=== PATIENT | female | born 1930 | race Caucasian/White ===

== ENCOUNTER → 2017-05-15 | Outpatient (CLI) | payer MEDICARE ==
--- NOTE | 2017-05-16 09:40 | ECHOF ---
Referral Reason:R07.9 Chest Pain, I30.9 Acute Pericarditis MEASUREMENTS -------- HEIGHT: 167.6 cm WEIGHT: 50.8 kg BP: RVIDd: 3.3 cm (< 3.3) IVSd: 1.0 cm (0.6 - 1.1) LVIDd: 4.9 cm (3.9 - 5.3) LVPWd: 1.1 cm (0.6 - 1.1) IVSs: 1.3 cm LVIDs: 2.8 cm LVPWs: 1.4 cm LAESV Index (A-L): 38.50 ml/m Ao Diam: 3.2 cm (2.0 - 3.7) AV Cusp: 1.9 cm (1.5 - 2.6) LA Diam: 4.2 cm (2.7 - 3.8) MV EXCURSION: 19.523 mm (> 18.000) MV EF SLOPE: 134 mm/s (70 - 150) EPSS: 0.8 cm MV E Sourav: 1.03 m/s MV DecT: 185 ms MV A Sourav: 0.99 m/s MV E/A Ratio: 1.03 RAP: 5.00 mmHg RVSP: 44.52 mmHg FINDINGS -------- Sinus rhythm. This was a technically good study. The left ventricular size is normal. Left ventricular wall thickness is normal. Overall left vent ricular systolic function is normal with, an EF between 60 - 65 %. The right ventricle is mildly enlarged. The right ventricular systolic function is normal. LA is moderately dilated 34-39 ml/m2 RA appears enlarged. There is mild aortic valve sclerosis. There is mild aortic regurgitation. There is no evidence of aortic stenosis. The mitral valve leaflets are mild to moderately thickened. Mild mitral annular calcification pres ent. Moderate mitral regurgitation is present. Mild tricuspid regurgitation present. There is mild pulmonary hypertension. The right ventricular systolic pressure, as measured by Doppler, is 44.52mmHg. The pulmonic valve was not well visualized. The aortic root size is normal. The inferior vena cava is dilated with no significant inspiratory collapse which is consistent estima augie right atrial pressure of >20 mmHg. There is a small pericardial effusion is located near the right ventricle. CONCLUSIONS -------- 1. Sinus rhythm. 2. This was a technically good study. 3. The left ventricular size is normal. 4. Left ventricular wall thickness is normal. 5. Overall left ventricular systolic function is normal with, an EF between 60 - 65 %. 6. The right ventricle is mildly enlarged. 7. LA is moderately dilated 34-39 ml/m2 8. RA appears enlarged. 9. There is mild aortic valve sclerosis. 10. There is mild aortic regurgitation. 11. The mitral valve leaflets are mild to moderately thickened. 12. Mild mitral annular calcification present. 13. Moderate mitral regurgitation is present. Consider GREGORY for optimal evaluation 14. Mild tricuspid regurgitation present. 15. There is mild pulmonary hypertension. 16. The right ventricular systolic pressure, as measured by Doppler, is 44.52mmHg. 17. The pulmonic valve was not well visualized. 18. The aortic root size is normal. 19. The inferior vena cava is dilated with no significant inspiratory collapse which is consistent es timated right atrial pressure of >20 mmHg. 20. There is a small pericardial effusion is located near the right ventricle. CORSETIER: Salo Sue RDCS
== END | disposition home or self-care (01) ==
LOC: RADECHMAIN 14:22
PROVIDERS: ATTEND Nurse Practitioner Family
DX: I08.3 Combined rheumatic disorders of mitral, aortic and tricuspid valves (principal); I27.20 Pulmonary hypertension, unspecified; I31.3 Pericardial effusion (noninflammatory)
CPT/HCPCS: 93306

== ENCOUNTER 2018-03-01 09:40 | Observation (INO) | payer MEDICARE ==
[2018-03-01 09:51] VITALS: RESP 18
[2018-03-01] MEDS ORDERED: NITROGLYCERIN OINT 1 INCH/GM PACKET TOPICAL STA (10:15)
[2018-03-01] MEDS ORDERED: ASPIRIN 81 MG PO STA (10:15)
--- NOTE | 2018-03-01 10:39 | ED ---
General Adult HPI - General Chief complaint: Chest Pain Stated complaint: Chest/Back Pain Time Seen by Provider: 03/01/18 09:45 Source: patient, RN notes reviewed Mode of arrival: ambulatory Limitations: no limitations - History of Present Illness Initial comments: This is an 87-year-old female who presents emergency Department complaining of chest pain and back pain. Patient states the back pain started yesterday and then last night in the middle the night she started having some chest pain as well. She continues to have both but the back pain is worse in the chest pain. Patient states she took an aspirin earlier today and the pain seemed to subside. Patient denies any radiation besides the back pain. Patient denies any difficulty breathing shortness of breath per patient denies any nausea vomiting diarrhea. Patient denies any diaphoretic episodes. Patient denies any lightheadedness or dizziness. Patient denies any numbness or weakness. Patient states she had a cardiac catheterization years ago and they told her she did have 150% blockage at that time. Patient denies any recent fever chills or cough per patient denies any swelling to legs. Patient denies any calf tenderness. - Related Data Home Medications Medication Instructions Recorded Confirmed Budesonide-Formot 160-4.5 Mcg 2 puff INHALATION RT-BID 03/01/18 03/01/18 [Symbicort 160-4.5 Mcg Inhaler] Allergies Allergy/AdvReac Type Severity Reaction Status Date / Time Sulfa (Sulfonamide Allergy Unknown Verified 03/01/18 10:17 Antibiotics) Review of Systems ROS Statement: Those systems with pertinent positive or pertinent negative responses have been documented in the HPI. ROS Other: All systems not noted in ROS Statement are negative. Past Medical History Past Medical History: COPD, Pneumonia History of Any Multi-Drug Resistant Organisms: None Reported Past Surgical History: Bowel Resection, Cholecystectomy Past Anesthesia/Blood Transfusion Reactions: No Reported Reaction Past Psychological History: No Psychological Hx Reported Smoking Status: Former smoker Past Alcohol Use History: None Reported Past Drug Use History: None Reported General Exam - General Exam Comments Initial Comments: GENERAL: Patient is well-developed and well-nourished. Patient is nontoxic and well- hydrated and is in no acute distress. ENT: Neck is soft and supple. No significant lymphadenopathy is noted. Oropharynx is clear. Moist mucous membranes. Neck has full range of motion without eliciting any pain. EYES: The sclera were anicteric and conjunctiva were pink and moist. Extraocular movements were intact and pupils were equal round and reactive to light. Eyelids were unremarkable. PULMONARY: Unlabored respirations. Good breath sounds bilaterally. No audible rales rhonchi or wheezing was noted. CARDIOVASCULAR: There is a regular rate and rhythm without any murmurs gallops or rubs. ABDOMEN: Soft and nontender with normal bowel sounds. No palpable organomegaly was noted. There is no palpable pulsatile mass. SKIN: Skin is clear with no lesions or rashes and otherwise unremarkable. NEUROLOGIC: Patient is alert and oriented x3. Cranial nerves II through XII are grossly intact. Motor and sensory are also intact. Normal speech, volume and content. Symmetrical smile. MUSCULOSKELETAL: Normal extremities with adequate strength and full range of motion. No lower extremity swelling or edema. No calf tenderness. LYMPHATICS: No significant lymphadenopathy is noted PSYCHIATRIC: Normal psychiatric evaluation. Limitations: no limitations Course Vital Signs 03/01/18 03/01/18 03/01/18 09:48 09:56 12:00 Temperature 98.0 F Pulse Rate 78 76 66 Respiratory 18 17 18 Rate Blood Pressure 130/73 155/85 O2 Sat by Pulse 96 96 Oximetry Medical Decision Making - Medical Decision Making EKG shows normal sinus rhythm at 72 bpm AL interval is 136 dresses 70 QT interval 376 QTC is 411. Patient's EKG shows no ST segment elevation. No T- wave abnormalities are noted. Chest x-ray shows no acute abnormality. I spoke with Dr. mckeon he agreed to admit the patient admitted the patient I wrote admitting orders and consult cardiology. - Lab Data Result diagrams: 03/01/18 11:17 03/01/18 11:17 Lab Results 03/01/18 03/01/18 03/01/18 Range/Units 11:17 11:17 11:17 WBC 9.5 (3.8-10.6) k/uL RBC 5.01 (3.80-5.40) m/uL Hgb 15.3 (11.4-16.0) gm/dL Hct 48.3 H (34.0-46.0) % MCV 96.6 (80.0-100.0) fL MCH 30.5 (25.0-35.0) pg MCHC 31.6 (31.0-37.0) g/dL RDW 13.7 (11.5-15.5) % Plt Count 196 (150-450) k/uL Neutrophils % 86 % Lymphocytes % 7 % Monocytes % 5 % Eosinophils % 1 % Basophils % 0 % Neutrophils # 8.1 H (1.3-7.7) k/uL Lymphocytes # 0.6 L (1.0-4.8) k/uL Monocytes # 0.5 (0-1.0) k/uL Eosinophils # 0.1 (0-0.7) k/uL Basophils # 0.0 (0-0.2) k/uL PT (9.0-12.0) sec INR (<1.2) APTT (22.0-30.0) sec Sodium 140 (137-145) mmol/L Potassium 4.5 (3.5-5.1) mmol/L Chloride 104 (98-107) mmol/L Carbon Dioxide 30 (22-30) mmol/L Anion Gap 6 mmol/L BUN 27 H (7-17) mg/dL Creatinine 1.00 (0.52-1.04) mg/dL Est GFR (CKD-EPI)AfAm 59 (>60 ml/min/1.73 sqM) Est GFR (CKD-EPI)NonAf 51 (>60 ml/min/1.73 sqM) Glucose 102 H (74-99) mg/dL Calcium 9.0 (8.4-10.2) mg/dL Magnesium 1.9 (1.6-2.3) mg/dL Total Bilirubin 0.8 (0.2-1.3) mg/dL AST 33 (14-36) U/L ALT 32 (9-52) U/L Alkaline Phosphatase 67 (38-126) U/L Total Creatine Kinase 71 (30-135) U/L CK-MB (CK-2) 3.2 H (0.0-2.4) ng/mL CK-MB (CK-2) Rel Index 4.5 Troponin I <0.012 (0.000-0.034) ng/mL Total Protein 6.1 L (6.3-8.2) g/dL Albumin 3.6 (3.5-5.0) g/dL 03/01/18 Range/Units 11:17 WBC (3.8-10.6) k/uL RBC (3.80-5.40) m/uL Hgb (11.4-16.0) gm/dL Hct (34.0-46.0) % MCV (80.0-100.0) fL MCH (25.0-35.0) pg MCHC (31.0-37.0) g/dL RDW (11.5-15.5) % Plt Count (150-450) k/uL Neutrophils % % Lymphocytes % % Monocytes % % Eosinophils % % Basophils % % Neutrophils # (1.3-7.7) k/uL Lymphocytes # (1.0-4.8) k/uL Monocytes # (0-1.0) k/uL Eosinophils # (0-0.7) k/uL Basophils # (0-0.2) k/uL PT 10.5 (9.0-12.0) sec INR 1.1 (<1.2) APTT 24.5 (22.0-30.0) sec Sodium (137-145) mmol/L Potassium (3.5-5.1) mmol/L Chloride (98-107) mmol/L Carbon Dioxide (22-30) mmol/L Anion Gap mmol/L BUN (7-17) mg/dL Creatinine (0.52-1.04) mg/dL Est GFR (CKD-EPI)AfAm (>60 ml/min/1.73 sqM) Est GFR (CKD-EPI)NonAf (>60 ml/min/1.73 sqM) Glucose (74-99) mg/dL Calcium (8.4-10.2) mg/dL Magnesium (1.6-2.3) mg/dL Total Bilirubin (0.2-1.3) mg/dL AST (14-36) U/L ALT (9-52) U/L Alkaline Phosphatase (38-126) U/L Total Creatine Kinase (30-135) U/L CK-MB (CK-2) (0.0-2.4) ng/mL CK-MB (CK-2) Rel Index Troponin I (0.000-0.034) ng/mL Total Protein (6.3-8.2) g/dL Albumin (3.5-5.0) g/dL Disposition Clinical Impression: Chest pain Disposition: ADMITTED IP TO THIS HOSP Referrals: Georgiana Gaffney DO [Primary Care Provider] - 1-2 days Time of Disposition: 12:32
--- NOTE | 2018-03-01 11:33 | XR ---
EXAMINATION TYPE: XR chest 2V DATE OF EXAM: 03/01/2018 COMPARISON: Prior chest x-ray 04/03/2017 HISTORY: Chest pain TECHNIQUE: Frontal and lateral views of the chest are obtained. FINDINGS: There is no focal air space opacity, pleural effusion, or pneumothorax seen. The cardiac silhouette size is within normal limits. Scattered granuloma are again noted. Prominent lung volumes compatible with underlying emphysema, COPD. Aorta is dense. The osseous structures are intact. Promin ent central pulmonary vascularity could be due to underlying pulmonary artery hypertension IMPRESSION: No acute cardiopulmonary process. Additional findings above.
[2018-03-01 11:35] LABS: Basophils % (A) 0 %; Eosinophils # (A) 0.1 k/uL (0-0.7); Eosinophils % (A) 1 %; HCT 48.3 % (34.0-46.0); HGB 15.3 gm/dL (11.4-16.0); Lymphocytes # (A) 0.6 k/uL (1.0-4.8); Lymphocytes % (A) 7 %; MCH 30.5 pg (25.0-35.0); MCHC 31.6 g/dL (31.0-37.0); MCV 96.6 fL (80.0-100.0); Mean Platelet Volume 6.9; Monocytes # (A) 0.5 k/uL (0-1.0); Monocytes % (A) 5 %; Neutrophils # (A) 8.1 k/uL (1.3-7.7); Neutrophils % (A) 86 %; Platelet Count 196 k/uL (150-450); RBC 5.01 m/uL (3.80-5.40); RDW 13.7 % (11.5-15.5); WBC 9.5 k/uL (3.8-10.6)
[2018-03-01 11:43] LABS: Albumin 3.6 g/dL (3.5-5.0); Magnesium 1.9 mg/dL (1.6-2.3); Potassium 4.5 mmol/L (3.5-5.1); Total Bilirubin 0.8 mg/dL (0.2-1.3); Total Protein 6.1 g/dL (6.3-8.2)
[2018-03-01 11:47] LABS: INR 1.1 (<1.2); Partial Thromboplastin Time 24.5 sec (22.0-30.0); Prothrombin Time 10.5 sec (9.0-12.0)
[2018-03-01 11:56] LABS: Creatine Kinase 71 U/L (30-135)
[2018-03-01 12:09] LABS: Creatine Kinase MB 3.2 ng/mL (0.0-2.4); Troponin I <0.012 ng/mL (0.000-0.034)
[2018-03-01] MEDS ORDERED: NITROGLYCERIN SL TABS 0.4 MG TAB SUBLINGUAL PRN (12:32)
[2018-03-01 18:02] LABS: Creatine Kinase 57 U/L (30-135)
[2018-03-01 18:14] LABS: Creatine Kinase MB 2.6 ng/mL (0.0-2.4); Troponin I <0.012 ng/mL (0.000-0.034)
[2018-03-01] MEDS: NITROGLYCERIN OINT 1 INCH/GM PACKET TOPICAL SCH ×2 (19:42→23:16)
--- NOTE | 2018-03-01 20:12 | CONS ---
CONSULTATION CHIEF COMPLAINT: Chest pain. Norma is an 87-year-old lady with history of COPD who presented to hospital complaining of chest pain. It is a sharp, interscapular pain that has radiated to the left side of her chest. It is unassociated with diaphoresis, unrelated to exertion and there is no dyspnea. It is mild intensity going on for the last several days on and off. EKG does not reveal ischemic changes. First set of cardiac enzymes are negative. The patient apparently had a cardiac catheterization many years ago and did not have significant obstructive CAD. PAST MEDICAL HISTORY: Significant for COPD. MEDICATIONS: The patient is on Symbicort. ALLERGIES: ALLERGIC TO SULFA. FAMILY HISTORY: Negative for premature coronary artery disease. SOCIAL HISTORY: Negative for current smoking, EtOH abuse, or drug abuse. REVIEW OF SYSTEMS: HEENT is unremarkable. CARDIAC: As described above. GI: Negative. : Negative. ALLERGY/IMMUNOLOGY: Negative. SKIN: Negative. MUSCULOSKELETAL: Significant for arthritis PSYCHOSOCIAL: Negative. CONSTITUTIONAL: Negative. DERM: Negative ONCOLOGICAL: Negative. The rest of the system review is not relevant. PHYSICAL EXAMINATION: On exam, patient is comfortable at rest. Vital signs are stable. There is no jugular venous distention. Carotid upstroke is normal. There is no bruit. Chest exam reveals good air entry bilaterally. Heart exam reveals first and second heart sounds. Ejection systolic murmur in the aortic area. Abdomen is soft. Exam of extremities did not reveal edema. Peripheral pulses are felt. EKG is within normal limits. First set of cardiac enzymes are negative. ASSESSMENT: Chest pain, sharp, atypical, probably noncardiac. Will obtain serial troponins to rule out myocardial infarction. If these are negative, we will schedule her for a stress test tomorrow. MMODL / IJN: [id number] /
[2018-03-01] MEDS ORDERED: MELATONIN 5 MG TABLET PO SCH (21:30)
[2018-03-01] MEDS ORDERED: LORATADINE 10 MG TAB PO PRN (21:41)
[2018-03-01] MEDS: ACETAMINOPHEN TAB 325 MG TAB PO PRN (21:42)
[2018-03-02 00:16] LABS: Creatine Kinase 53 U/L (30-135)
[2018-03-02] MEDS ORDERED: DOCUSATE 100 MG CAP PO PRN (00:19)
--- NOTE | 2018-03-02 00:27 | P.HPIM ---
History of Present Illness H&P Date: 03/01/18 Chief Complaint: Chest pain Patient is a 87-year-old female with a known history of COPD and history of smoking came to ER with complaints of pain in the back started coming around chest. Patient states the back pain started yesterday and then last night in the middle the night she started having some chest pain as well and woke up from sleep. Patient was unable to sleep for a long time. Last about half an hour to 2 hours. Patient woke up again around 5 AM with chest pain. Patient states she took an aspirin earlier today and the pain seemed to subside. Patient denies any radiation besides the back pain. Back pain is mainly left lower chest and flank area. Patient denies any difficulty breathing shortness of breath per patient denies any nausea vomiting diarrhea. Patient denies any diaphoretic episodes. Patient denies any lightheadedness or dizziness. Patient denies any numbness or weakness. Currently patient says that the pain is subsiding. Patient states she had a cardiac catheterization years ago and they told her she did have 50% blockage at that time. Patient denies any recent fever chills or cough per patient denies any swelling to legs. Patient denies any calf tenderness. Patient does have issues with constipation. Last bowel movement was yesterday. Chest x-ray showed no acute process. Positive findings of pulmonary hypertension. EKG sinus rhythm with sinus arrhythmia Neckline troponin 1 negative Review of Systems Constitutional: Patient denies any fever or chills . No generalized weakness or weight loss. Abdomen: Patient denied nausea vomiting and diarrhea and abdominal pain. Cardiovascular: Does have chest pain. No short of breath no palpitations. No leg swelling Respiratory: patient denied any cough is from production. No shortness of breath Neurologic: Patient denied any numbness or tingling headache. Musculoskeletal: Patient denies any complaints of joint swelling or deformity. Skin: Negative Psychiatric: Negative Endocrine: No heat or cold intolerance. No recent weight gain. Genitourinary: No dysuria or hematuria. All other 14 point ROS negative except the above Past Medical History Past Medical History: COPD, Pneumonia History of Any Multi-Drug Resistant Organisms: None Reported Past Surgical History: Bowel Resection, Cholecystectomy Past Anesthesia/Blood Transfusion Reactions: No Reported Reaction Past Psychological History: No Psychological Hx Reported Smoking Status: Former smoker Past Alcohol Use History: None Reported Past Drug Use History: None Reported - Past Family History Mother Family Medical History: Cancer Father Family Medical History: Congestive Heart Failure (CHF) Medications and Allergies Home Medications Medication Instructions Recorded Confirmed Type Budesonide-Formot 160-4.5 Mcg 2 puff INHALATION RT-BID 03/01/18 03/01/18 History [Symbicort 160-4.5 Mcg Inhaler] Allergies Allergy/AdvReac Type Severity Reaction Status Date / Time Sulfa (Sulfonamide Allergy Unknown Verified 03/01/18 21:05 Antibiotics) Physical Exam Vitals: Vital Signs Temp Pulse Resp BP Pulse Ox 03/01/18 14:30 60 18 150/75 03/01/18 14:00 62 18 151/76 03/01/18 13:30 57 L 18 148/79 03/01/18 13:14 66 18 148/79 96 03/01/18 13:00 61 18 154/82 96 03/01/18 12:30 61 18 159/83 03/01/18 12:00 66 18 155/85 96 03/01/18 09:56 76 17 03/01/18 09:48 98.0 F 78 18 130/73 96 Intake and Output 02/28/18 03/01/18 03/01/18 22:59 06:59 14:59 Other: Weight 50.802 kg PHYSICAL EXAMINATION: Patient is lying in the bed comfortably, no acute distress, awake alert and oriented.. HEENT: Normocephalic. Neck is supple. Pupils reactive. Nostrils clear. Oral cavity is moist. Ears reveal no drainage. Neck reveals no JVD, carotid bruits, or thyromegaly. CHEST EXAMINATION: Trachea is central. Symmetrical expansion. Lung garza clear to auscultation and percussion. CARDIAC: Normal S1, S2 with no gallops. No murmurs ABDOMEN: Soft. No flank tenderness. Bowel sounds normal. No organomegaly. No abdominal bruits. Extremities: reveal no edema. No clubbing or cyanosis Neurologically awake, alert, oriented x3 with well-coordinated movements. No focal deficits noted Skin: No rash or skin lesions. Psychiatric: Coperative. Nonsuicidal Musculoskeletal: No joint swelling or deformity. Normal range of motion. Results CBC & Chem 7: 03/01/18 11:17 03/01/18 11:17 Labs: Abnormal Lab Results - Last 24 Hours (Table) 03/01/18 03/01/18 03/01/18 Range/Units 11:17 11:17 11:17 Hct 48.3 H (34.0-46.0) % Neutrophils # 8.1 H (1.3-7.7) k/uL Lymphocytes # 0.6 L (1.0-4.8) k/uL BUN 27 H (7-17) mg/dL Glucose 102 H (74-99) mg/dL CK-MB (CK-2) 3.2 H (0.0-2.4) ng/mL Total Protein 6.1 L (6.3-8.2) g/dL Thrombosis Risk Factor Assmnt - DVT/VTE Prophylaxis DVT/VTE Prophylaxis: Pharmacologic Prophylaxis ordered Assessment and Plan Assessment: Atypical chest pain and back pain. Rule out ACS. Sinus arrhythmia Dehydration with elevated BUN COPD stable History of smoking Constipation on and off DVT prophylaxis Plan: Patient be continued on telemetry monitoring. Serial EKG and troponins. If the serial troponins are negative, cardiac disease planning for stress test. Continue with Symbicort 2 puffs twice a day. Will check a UA and gentle hydration. Further recommendations based on the clinical course. Time with Patient: Greater than 30
[2018-03-02 00:30] LABS: Creatine Kinase MB 1.8 ng/mL (0.0-2.4); Troponin I <0.012 ng/mL (0.000-0.034)
[2018-03-02] MEDS ORDERED: SODIUM CHLORIDE 0.9% 1,000 ML IV SCH (00:30)
[2018-03-02 02:41] LABS: Cholesterol 176 mg/dL (<200); HDL Cholesterol 75 mg/dL (40-60); LDL Cholesterol,Calculated 85 mg/dL (0-99); Triglycerides 80 mg/dL (<150)
[2018-03-02 04:35] VITALS: PULSE 72
[2018-03-02] MEDS: NITROGLYCERIN OINT 1 INCH/GM PACKET TOPICAL SCH ×2 (05:52→12:47)
[2018-03-02] MEDS: SYMBICORT 160-4.5 MCG INHALER INHALATION SCH ×2 (07:06→07:09)
[2018-03-02] MEDS ORDERED: ASPIRIN 325 MG TAB PO SCH (09:00)
[2018-03-02] MEDS ORDERED: CAFFEINE CITRATE 60 MG/3 ML VIAL IV PRN (09:39)
[2018-03-02] MEDS ORDERED: REGADENOSON 0.4 MG/5 ML SYRINGE IV ONE (09:39)
--- NOTE | 2018-03-02 11:55 | EST ---
EXERCISE STRESS AGE: 87 SEX: F HT: 66" WT: 112 PROTOCOL: Lexiscan Cardiolite Stress Test HEART RATE REST: 63 BLOOD PRESSURE REST: 132/78 MAXIMUM HEART RATE ACHIEVED: 103 MAXIMUM BLOOD PRESSURE: 148/65 85% MPHR: 113 100% MPHR: 133 INDICATIONS: Chest pain. CLINICAL INFORMATION: Baseline EKG shows sinus rhythm, normal axis, normal intervals. Patient was given intravenous Lexiscan as per protocol. Did not have chest pain or diagnostic ST-segment depression. CONCLUSION: 1. Negative stress test by EKG criteria. 2. Cardiolite portion of the stress test will be reported separately. MMODL / IJN: [id number] /
--- NOTE | 2018-03-02 11:55 | PN ---
PROGRESS NOTE Norma is an 87-year-old lady who presented to hospital with chest pain yesterday. I evaluated her in the emergency room. Since being admitted she is doing well and has not had any further episodes of chest pain. EKG does not reveal acute ischemic changes. Cardiac enzymes have been normal. Her lipid profile shows an LDL cholesterol of 85 and a HDL of 75. I advised the patient will undergo a stress test today and if there is ischemia, I will consider cardiac catheterization on her. PHYSICAL EXAM: She is comfortable at rest. Vital signs are stable. There is no jugular venous distention. Carotid upstroke is normal. There is no bruit. Chest exam reveals good air entry bilaterally. Heart exam reveals first and second heart sounds. No gallop. Abdomen is soft. Exam of extremities did not reveal any edema. Peripheral pulses are felt. Patient is to have an echocardiogram and will review when it is available. ASSESSMENT: Precordial chest pain, rule out coronary artery disease. PLAN: Patient will undergo a stress test. If this is normal, she will be discharged home. If it is abnormal, she will undergo cardiac catheterization. MMODL / IJN: [id number] /
--- NOTE | 2018-03-02 12:26 | NM ---
EXAMINATION TYPE: NM stress lexiscan cardiolite DATE OF EXAM: 03/02/2018 COMPARISON: NONE HISTORY: Chest pain TECHNIQUE: After the intravenous administration of 10.3 mCi Tc 99m Sestamibi - Cardiolite resting SP ECT images acquired 45 minutes post injection. At peak stress, 25.2 mCi Tc 99m Sestamibi - Stress images obtained 30 minutes post injection . Patient stressed under cardiology observation but did not achieve 85% predicted maximum heart rate. E xamination is limited to the level of exercise achieved. FINDINGS: There is some cardiac thinning. No stress-induced ischemic changes are evident. No fixed defects are evident. Gated wall motion is normal. The ejection fraction of 68% is normal. IMPRESSION: 1. No stress-induced ischemic changes. 2. Patient did not achieve 85% predicted maximum heart rate exam is limited to the level of exercise achieved.
[2018-03-02] MEDS: ACETAMINOPHEN TAB 325 MG TAB PO PRN (12:44)
[2018-03-02 12:51] VITALS: BP 157/65; TEMP 97.9
--- NOTE | 2018-03-02 15:17 | P.DS ---
Providers Date of admission: 03/01/18 12:33 Attending physician: Garry Otero MD Consults: 03/01/18 12:33 Consult Physician Urgent Consulting Provider: [facility] Consult Reason/Comments: Chest pain Do you want consulting provider notified?: Yes Primary care physician: Georgiana Gaffney Hospital Course: Patient was admitted for chest pain patient underwent stress test which did not show any inducible ischemia. If cleared by cardiology patient will be discharged today. Patient's pain is musculoskeletal and back pain. Patient has to take [id number] Tylenol on an as-needed basis and patient will benefit from outpatient physical therapy' PHYSICAL EXAMINATION: GENERAL: The patient is alert and oriented x3, not in any acute distress. Well developed, well nourished. HEENT: Pupils are round and equally reacting to light. EOMI. No scleral icterus. No conjunctival pallor. Normocephalic, atraumatic. No pharyngeal erythema. No thyromegaly. CARDIOVASCULAR: S1 and S2 present. No murmurs, rubs, or gallops. PULMONARY: Chest is clear to auscultation, no wheezing or crackles. ABDOMEN: Soft, nontender, nondistended, normoactive bowel sounds. No palpable organomegaly. MUSCULOSKELETAL: No joint swelling or deformity. EXTREMITIES: No cyanosis, clubbing, or pedal edema. NEUROLOGICAL: Gross neurological examination did not reveal any focal deficits. SKIN: No rashes. Her other chronic medical problems and hospitalization course please refer to the dictation of H&P from Dr. Troy Plan - Discharge Summary Discharge Rx Participant: No New Discharge Prescriptions: No Action Budesonide-Formot 160-4.5 Mcg [Symbicort 160-4.5 Mcg Inhaler] 2 puff INHALATION RT-BID Discharge Medication List Budesonide-Formot 160-4.5 Mcg [Symbicort 160-4.5 Mcg Inhaler] 2 puff INHALATION RT-BID 03/01/18 [History] Follow up Appointment(s)/Referral(s): Georgiana Gaffney DO [Primary Care Provider] - 3 Days Clovis Canales MD [STAFF PHYSICIAN] - 1 Week Patient Instructions/Handouts: Chest Pain (GEN) Discharge Disposition: HOME SELF-CARE
--- NOTE | 2018-03-03 08:59 | ECHOF ---
Referral Reason:cp MEASUREMENTS -------- HEIGHT: 167.6 cm WEIGHT: 50.8 kg BP: 127/65 RVIDd: 2.2 cm (< 3.3) IVSd: 1.1 cm (0.6 - 1.1) LVIDd: 3.7 cm (3.9 - 5.3) LVPWd: 1.1 cm (0.6 - 1.1) IVSs: 1.5 cm LVIDs: 2.4 cm LVPWs: 1.4 cm LAESV Index (A-L): 59.91 ml/m Ao Diam: 3.5 cm (2.0 - 3.7) AV Cusp: 1.6 cm (1.5 - 2.6) LA Diam: 3.5 cm (2.7 - 3.8) EPSS: 0.7 cm MV E Sourav: 0.88 m/s MV DecT: 210 ms MV A Sourav: 1.11 m/s MV E/A Ratio: 0.79 AR PHT: 499 ms RAP: 5.00 mmHg RVSP: 39.46 mmHg MV EF SLOPE: 45.85 mm/s (70 - 150) MV EXCURSION: 1.56 cm (> 18.000) FINDINGS -------- Sinus rhythm. This was a technically good study. The left ventricular size is normal. There is borderline concentric left ventricular hypertrophy. Overall left ventricular systolic function is normal with, an EF between 60 - 65 %. The right ventricle is normal in size and function. LA is severely dilated >40 ml/m2 RA appears enlarged. Aortic valve is trileaflet and is moderately thickened. There is moderate aortic regurgitation. T here is no evidence of aortic stenosis. The mitral valve leaflets are mild to moderately thickened. Moderate mitral annular calcification present. Moderate mitral regurgitation is present. Mild tricuspid regurgitation present. There is mild pulmonary hypertension. The right ventricular systolic pressure, as measured by Doppler, is 39.46mmHg. The pulmonic valve was not well visualized. The aortic root size is normal. Normal inferior vena cava with normal inspiratory collapse consistent with estimated right atrial pre ssure of 5 mmHg. There is no pericardial effusion. CONCLUSIONS -------- 1. Sinus rhythm. 2. This was a technically good study. 3. The left ventricular size is normal. 4. There is borderline concentric left ventricular hypertrophy. 5. Overall left ventricular systolic function is normal with, an EF between 60 - 65 %. 6. LA is severely dilated >40 ml/m2 7. RA appears enlarged. 8. Aortic valve is trileaflet and is moderately thickened. 9. There is moderate aortic regurgitation. 10. The mitral valve leaflets are mild to moderately thickened. 11. Moderate mitral annular calcification present. 12. Moderate mitral regurgitation is present. 13. Mild tricuspid regurgitation present. 14. There is mild pulmonary hypertension. 15. The right ventricular systolic pressure, as measured by Doppler, is 39.46mmHg. 16. The pulmonic valve was not well visualized. 17. The aortic root size is normal. 18. There is no pericardial effusion. TERMINAL GAUGER SUPERVISOR: Salo Sue RDCS
== END 2018-03-02 15:20 | disposition home or self-care (01) ==
LOC: EC 09:40 → 1SOBS 12:33
PROVIDERS: ADMIT Internal Medicine; ATTEND Internal Medicine
DX: R07.2 Precordial pain (principal); J44.9 Chronic obstructive pulmonary disease, unspecified; M54.9 Dorsalgia, unspecified; K59.00 Constipation, unspecified; I49.9 Cardiac arrhythmia, unspecified; E86.0 Dehydration; R94.4 Abnormal results of kidney function studies; Z87.01 Personal history of pneumonia (recurrent); Z90.49 Acquired absence of other specified parts of digestive tract; Z88.2 Allergy status to sulfonamides; Z79.51 Long term (current) use of inhaled steroids
CPT/HCPCS: 93005; 99285; 36415; 93017; 93306; 80061; 80053; 82550; 82553; 83735; 84484; 85025; 85610; 85730; 71046; 78452; G0378 ×2; A9500; J2785

== ENCOUNTER 2020-05-15 11:17 | Inpatient (IN) | payer MEDICARE ==
[2020-05-15] MEDS ORDERED: MAGNESIUM HYDROXIDE 2,400 MG/10 ML CUP PO PRN (11:57)
[2020-05-15] MEDS ORDERED: CALCIUM CARBONATE 500 MG CHEWABLE PO PRN (11:57)
[2020-05-15] MEDS ORDERED: ONDANSETRON 4 MG/2 ML VIAL IVP PRN (11:57)
[2020-05-15] MEDS ORDERED: NALOXONE 0.4 MG/ML 1 ML VIAL IV PRN (11:57)
[2020-05-15] MEDS ORDERED: MAG HYDROX/AL HYDROX/SIMETH 30 ML CUP PO PRN (11:57)
--- NOTE | 2020-05-15 12:19 | P.HPOR ---
History of Present Illness H&P Date: 05/15/20 Chief Complaint: Cellulitis LMF with possible osteomyelitis This is an 89-year-old female who we have been following in our office for infection to the left middle finger. She was initially seen on 05/14/2020 and had incision and drainage in the office with irrigation with saline and then packing of the wound. Cultures were obtained which showed gram-negative bacilli. She had had a previous culture by urgent care which showed Pseudomonas. Her symptoms have persisted. She continues to have pain and swelling as well as redness to the finger. She has failed outpatient conservative treatment. It is recommended she be admitted for IV antibiotics and evaluation with infectious disease. Past Medical History Past Medical History: COPD, Pneumonia Additional Past Medical History / Comment(s): palpatations,murmur, past kidney stones, past benign colon poly History of Any Multi-Drug Resistant Organisms: None Reported Past Surgical History: Bowel Resection, Cholecystectomy Additional Past Surgical History / Comment(s): "i had a colon poly imbedded in lining of colon-in order to get it out they had to take section of colon out", cataracts removed has lens implants Past Anesthesia/Blood Transfusion Reactions: No Reported Reaction Additional Past Anesthesia/Blood Transfusion Reaction / Comment(s): has never recieved any blood transfusions Past Psychological History: No Psychological Hx Reported Past Alcohol Use History: None Reported Past Drug Use History: None Reported - Past Family History Mother Family Medical History: Cancer Father Family Medical History: Congestive Heart Failure (CHF) Medications and Allergies Home Medications Medication Instructions Recorded Confirmed Type Budesonide-Formot 160-4.5 Mcg 2 puff INHALATION RT-BID 03/01/18 03/01/18 History [Symbicort 160-4.5 Mcg Inhaler] Allergies Allergy/AdvReac Type Severity Reaction Status Date / Time Sulfa (Sulfonamide Allergy Unknown Verified 03/01/18 21:05 Antibiotics) Physical Examination This is a pleasant 89-year-old female in no acute distress. She is alert and oriented 3. Exam of the left hand revealed continued swelling to the left middle finger. The incision remains open. There is no active purulent drainage from the incision at this time. She has limited motion to the finger. Sensation isn't dulled to the fingertip. Capillary refill is less than 3 seconds. The remainder of her musculoskeletal exam is unremarkable. Results X-rays of the left middle finger taken in the office reveal no acute fracture. There are bony changes to the distal phalanx consistent with possible osteomyelitis. Assessment and Plan (1) Cellulitis of left middle finger Status: Acute Code(s): L03.012 - CELLULITIS OF LEFT FINGER SNOMED Code(s): 63291128 (2) Osteomyelitis of finger of left hand Status: Acute Code(s): M86.9 - OSTEOMYELITIS, UNSPECIFIED SNOMED Code(s): 0965866681872796 Plan: The clinical and x-ray findings were discussed with the patient. Treatment options are reviewed including continued outpatient antibiotic treatment and wound care, inpatient IV antibiotics Versus amputation.The patient elects to be admitted to [facility] for IV antibiotics and evaluation with infectious disease. He'll be admitted today and I will consult Dr. Casey for antibiotic recommendation and wound care.
[2020-05-15] MEDS ORDERED: GENTAMICIN PER PHARMACY MISCELLANE SCH (12:30)
[2020-05-15] MEDS ORDERED: LEVOFLOXACIN 500 MG TAB PO SCH (13:00)
[2020-05-15] MEDS ORDERED: CEFEPIME 2 GM in SODIUM CHLORIDE 0.9% 100 ML IVPB ONE (13:30)
[2020-05-15] MEDS: IBUPROFEN 400 MG TAB PO PRN ×2 (14:27→22:39)
[2020-05-15] MEDS: SODIUM CHLORIDE 0.9% 1,000 ML IV SCH (14:28)
[2020-05-15 15:15] LABS: Basophils % (A) 0 %; Eosinophils # (A) 0.1 k/uL (0-0.7); Eosinophils % (A) 1 %; HCT 42.5 % (34.0-46.0); HGB 13.4 gm/dL (11.4-16.0); Lymphocytes # (A) 0.7 k/uL (1.0-4.8); Lymphocytes % (A) 10 %; MCH 29.6 pg (25.0-35.0); MCHC 31.5 g/dL (31.0-37.0); Mean Platelet Volume 7.5; Monocytes # (A) 0.5 k/uL (0-1.0); Monocytes % (A) 7 %; Neutrophils # (A) 5.6 k/uL (1.3-7.7); Neutrophils % (A) 80 %; Platelet Count 225 k/uL (150-450); RBC 4.52 m/uL (3.80-5.40); RDW 13.9 % (11.5-15.5)
[2020-05-15 15:20] LABS: ALT 15 U/L (4-34); AST 25 U/L (14-36); African American GFR (CKD) 40 (>60 ml/min/1.73 sqM); Albumin 3.5 g/dL (3.5-5.0); Albumin/Globulin Ratio 1.3; Alkaline Phosphatase 72 U/L (38-126); Anion Gap 5 mmol/L; Blood Urea Nitrogen 25 mg/dL (7-17); C Reactive Protein <5.0 mg/L (<10.0); Carbon Dioxide 29 mmol/L (22-30); Chloride 101 mmol/L (98-107); Globulin 2.7 g/dL; Glucose 150 mg/dL (74-99); Non-African American GFR(CKD) 34 (>60 ml/min/1.73 sqM); Potassium 4.4 mmol/L (3.5-5.1); Sodium 135 mmol/L (137-145); Total Bilirubin 0.5 mg/dL (0.2-1.3); Total Protein 6.2 g/dL (6.3-8.2)
[2020-05-15 16:19] LABS: Erythrocyte Sedimentation Rate 11 mm/hr (0-20)
[2020-05-15] MEDS ORDERED: GENTAMICIN 340 MG in SODIUM CHLORIDE 0.9% 100 ML IVPB SCH (16:30)
--- NOTE | 2020-05-15 17:22 | P.CONS ---
History of Present Illness - Reason for Consult Consult date: 05/15/20 medical managment - Chief Complaint finger infection - History of Present Illness 89-year-old female with recent history of left middle finger infection. She recently had incision and drainage in the office with irrigation with saline and then packing of the wound. Cultures were obtained which showed gram-negative bacilli. She had had a previous culture by urgent care which showed Pseudomona s. Despite treatment with antibiotics and drainage, outpatient she continues to have pain and swelling as well as redness to the finger. Patient denied any other symptoms including fevers, chills, nausea or vomiting. She denied chest pain or shortness of breath. No diarrhea. Review of Systems Complete Review of system performed, pertinent positives per HPI, otherwise negative Past Medical History Past Medical History: COPD, Pneumonia Additional Past Medical History / Comment(s): palpatations,murmur, past kidney stones, past benign colon poly History of Any Multi-Drug Resistant Organisms: None Reported Past Surgical History: Bowel Resection, Cholecystectomy Additional Past Surgical History / Comment(s): "i had a colon poly imbedded in lining of colon-in order to get it out they had to take section of colon out", cataracts removed has lens implants Past Anesthesia/Blood Transfusion Reactions: No Reported Reaction Additional Past Anesthesia/Blood Transfusion Reaction / Comm: has never recieved any blood transfusions Past Psychological History: No Psychological Hx Reported Additional Psychological History / Comment(s): pt lives alone(lost her in october 2017). pt is independant,drives. family lives nearby. has a nebulizer. Smoking Status: Former smoker Past Alcohol Use History: None Reported Additional Past Alcohol Use History / Comment(s): started smoking at age 18,quit 1961 smoked less than 1 ppd Past Drug Use History: None Reported - Past Family History Mother Family Medical History: Cancer Father Family Medical History: Congestive Heart Failure (CHF) Medications and Allergies Home Medications Medication Instructions Recorded Confirmed Type Budesonide-Formot 160-4.5 Mcg 2 puff INHALATION RT-BID 03/01/18 05/15/20 History [Symbicort 160-4.5 Mcg Inhaler] Albuterol Nebulized [Ventolin 2.5 mg INHALATION RT-BID 05/15/20 05/15/20 History Nebulized] Ibuprofen [Motrin] 800 mg PO BID PRN 05/15/20 05/15/20 History Levofloxacin [Levaquin] 500 mg PO DAILY 05/15/20 05/15/20 History Allergies Allergy/AdvReac Type Severity Reaction Status Date / Time Sulfa (Sulfonamide Allergy Unknown Verified 05/15/20 13:30 Antibiotics) Childhood Physical Exam Vitals: Vital Signs Temp Pulse Resp BP Pulse Ox 05/15/20 13:41 98.4 F 96 18 133/69 93 L Intake and Output 05/15/20 05/15/20 05/15/20 06:59 14:59 22:59 Other: # Voids 3 Weight 50.802 kg Constitutional: No acute distress, conversant, pleasant Eyes:Anicteric sclerae, moist conjunctiva, no lid-lag, PERRLA, ENMT: Oropharynx clear, no erythema, exudates Neck: Supple, FROM, no masses, or JVD, No carotid bruits, No thyromegaly Lungs: Clear to auscultation, Clear to percussion, Normal respiratory effort, no accessory muscle use Cardiovascular: Heart regular in rate and rhythm, No murmurs, gallops, or rubs, No peripheral edema Abdominal: Soft, Nontender, no guarding, rebound or rigidity, Normoactive bowel sounds, No hepatomegaly, No splenomegaly, No palpable mass Skin: Normal temperature, tone, texture, turgor, no induration, No subcutaneous nodules, No rash, lesions, No ulcers Extremities: Left middle finger wrapped In gauze No digital cyanosis, No clubbing, Pedal pulses intact and symmetrical, Radial pulses intact and symmetrical, No calf tenderness Psychiatric: Alert and oriented to person, place and time, appropriate affect, intact judgement Neuro: Muscles Strength 5/5 in all 4 extremities, Sensation to light touch grossly present throughout, Cranial nerves II-XII grossly intact, no focal sensory deficits Results CBC & Chem 7: 05/15/20 14:46 05/15/20 14:46 Labs: Abnormal Lab Results - Last 24 Hours (Table) 05/15/20 05/15/20 Range/Units 14:46 14:46 Lymphocytes # 0.7 L (1.0-4.8) k/uL Sodium 135 L (137-145) mmol/L BUN 25 H (7-17) mg/dL Creatinine 1.37 H (0.52-1.04) mg/dL Glucose 150 H (74-99) mg/dL Total Protein 6.2 L (6.3-8.2) g/dL Assessment and Plan Plan: Gram-negative left middle finger cellulitis and osteomyelitis IV antibiotics treatment with cefepime and gentamicin. Ortho following Ibuprofen when necessary for pain ID consult COPD Chronic and stable Resume bronchodilators
[2020-05-15] MEDS: CEFEPIME 2 GM in SODIUM CHLORIDE 0.9% 100 ML IVPB SCH (20:14)
--- NOTE | 2020-05-15 23:44 | CONS ---
CONSULTATION DATE OF SERVICE: 05/15/2020 REASON FOR CONSULTATION: Left middle finger infection. HISTORY OF PRESENT ILLNESS: The patient is an 89-year-old female who apparently started having a problem with a left middle fingertip wound that started about 5 weeks ago. The patient denies having any history of any trauma and has been evaluated in the outpatient setting. The patient apparently has been treated with different antibiotic therapy, including Keflex, without any improvement. The patient was evaluated in the orthopedic office yesterday, where the patient had I and D in the office done with irrigation and packing of the wound. The patient did have cultures obtained that are now showing Gram- negative bacilli with recent outpatient culture positive for Pseudomonas. The patient subsequently has been admitted to the hospital for IV antibiotic therapy. The patient denies having any fever or any chills. She has been complaining of pain to the left middle finger area that is more of a throbbing intensity, 5 to 6 out of 10, no radiation. There is no significant purulent drainage. The patient denies having any chest pain or shortness of breath or cough. No abdominal pain or any diarrhea. She was started on Levaquin, admitted to the hospital. Infectious Disease was consulted for further management of antibiotic therapy. REVIEW OF SYSTEMS: Positive points have been mentioned in the HPI. Rest of the systems negative. PAST MEDICAL HISTORY: Pneumonia and COPD. PAST SURGICAL HISTORY: Bowel resection, cholecystectomy. SOCIAL HISTORY: No history of smoking, drinking or drug use. FAMILY HISTORY: Father with history of congestive heart failure. ALLERGIES: SULFA. MEDICATIONS: The patient is currently on Levaquin, Tylenol, Maalox, Tums, Motrin, Narcan, Zofran and gentamicin. PHYSICAL EXAMINATION: Blood pressure is 158/64 with a pulse of 73, temperature 98.2. She is 94% on room air. General description is an elderly female up in the bed in no distress. HEENT: Examination shows no pallor or scleral icterus. Oral mucous membrane is dry. No pharyngeal erythema or thrush. NECK: Trachea is central. No thyromegaly. LUNGS: Unlabored breathing. Clear to auscultation anteriorly. HEART: S1, S2. Regular rate and rhythm. ABDOMEN: Soft. No tenderness. No guarding or rigidity. EXAMINATION OF THE LEFT MIDDLE FINGER: Swelling and redness with a wound. No purulent drainage. Neurologically the patient is awake, alert, oriented x3. Mood and affect normal. LABS: Hemoglobin is 13.4, white count 7.0. BUN of 25, creatinine 1.37. Sed rate was 11. CRP less than 5. Culture done from yesterday: Gram-negative bacilli. Culture done on May 07 was Pseudomonas aeruginosa. DIAGNOSTIC IMPRESSION AND PLAN: 1. Patient with left middle finger chronic nonhealing wound infection. Apparently she had x-rays done in the orthopedic office that showed evidence of osteomyelitis with the outpatient culture positive for Pseudomonas the likely pathogen. 2. Patient with SULFA ALLERGY. 3. Borderline kidney function, high risk of toxicity. PLAN: 1. Discontinue Levaquin and . 2. We will start the patient on cefepime 2 grams q.12 hours . 3. Patient will likely need a PICC line for outpatient IV antibiotic therapy. 4. Will follow her clinical condition and culture to further adjust medication if needed. Thank you for this consultation. Will follow this patient along with you. MMODL / IJN: [id number] /
[2020-05-16] MEDS: CEFEPIME 2 GM in SODIUM CHLORIDE 0.9% 100 ML IVPB SCH ×2 (07:12→20:04)
[2020-05-16] MEDS: ALBUTEROL NEBULIZED 2.5 MG/3 ML INHALATION SCH ×2 (08:19→19:48)
[2020-05-16] MEDS: SYMBICORT 160-4.5 MCG INHALER INHALATION SCH ×2 (10:15→19:48)
--- NOTE | 2020-05-16 10:59 | P.PN ---
Subjective Progress Note Date: 05/16/20 This is an 89-year-old female who is being followed for an infection of the left middle finger. We have been following in our office for infection to the left middle finger. She was initially seen on 05/14/2020 and had incision and drainage in the office with irrigation with saline and then packing of the wound. Cultures were obtained which showed gram-negative bacilli. She had had a previous culture by urgent care which showed Pseudomonas. Her symptoms have persisted. She continues to have pain and swelling as well as redness to the finger. She has failed outpatient conservative treatment. It is recommended she be admitted for IV antibiotics and evaluation with infectious disease. 05/16/19: Patient is seen and examined bedside this morning. She was evaluated by Dr. Casey yesterday afternoon, and IV antibiotic was switched to cefepime. Dressing was changed to gel fiber with silver. Patient notes mild pain in the left middle finger today with swelling. She is having pain with ROM of the finger. She overall feels well. She denies chest pain, shortness of breath, nausea, vomiting, fevers, chills. She has no complaints this morning. Vital signs stable. Objective - Vital Signs Vital signs: Vital Signs Temp 97.0 F L 05/16/20 08:47 Pulse 88 05/16/20 08:47 Resp 17 05/16/20 08:47 BP 167/70 05/16/20 08:47 Pulse Ox 94 L 05/16/20 08:47 Intake & Output 05/15/20 05/16/20 05/16/20 18:59 06:59 18:59 Weight 50.802 kg Other: # Voids 3 3 - Exam On examination, the patient is sitting up in bed in no apparent distress. She is currently afebrile. She is alert and orientated x3. On inspection of the left hand, there is a clean, dry, intact dressing in place of the left middle finger. There is surrounding swelling and ecchymosis of the finger and dorsal hand. There is limited motion of the finger. Sensation is intact to light touch of the fingertip. Finger appears warm and well perfused. - Labs CBC & Chem 7: 05/15/20 14:46 05/15/20 14:46 Labs: Abnormal Lab Results - Last 24 Hours (Table) 05/15/20 05/15/20 Range/Units 14:46 14:46 Lymphocytes # 0.7 L (1.0-4.8) k/uL Sodium 135 L (137-145) mmol/L BUN 25 H (7-17) mg/dL Creatinine 1.37 H (0.52-1.04) mg/dL Glucose 150 H (74-99) mg/dL Total Protein 6.2 L (6.3-8.2) g/dL Assessment and Plan Assessment: Cellulitis LMF with possible osteomyelitis Plan: - No surgical intervention planned at this time. Continue supportive care. - Continue IV antibiotics and local wound care under the discretion of Dr. Charmaine garcia. - Will continue to follow cultures obtained in the office in 05/14/20. - We will continue to follow patient closely and make recommendations as needed.
[2020-05-16] MEDS: SODIUM CHLORIDE 0.9% 1,000 ML IV SCH (12:26)
[2020-05-16] MEDS: NICOTINE 14MG/24HR PATCH TRANSDERM SCH (12:38)
[2020-05-16 14:02] VITALS: BMI 18.1
--- NOTE | 2020-05-16 14:58 | P.PN ---
Subjective Progress Note Date: 05/16/20 Principal diagnosis: Left middle finger pain Patient continues to do well. She noticed improvement in the left middle finger pain. No fevers or chills. No nausea or vomiting. Objective - Vital Signs Vital signs: Vital Signs Temp 97.0 F L 05/16/20 08:47 Pulse 88 05/16/20 08:47 Resp 17 05/16/20 08:47 BP 167/70 05/16/20 08:47 Pulse Ox 94 L 05/16/20 08:47 Intake & Output 05/15/20 05/16/20 05/16/20 18:59 06:59 18:59 Weight 50.802 kg 50.802 kg Other: # Voids 3 3 - Exam Constitutional: No acute distress, conversant, pleasant Eyes:Anicteric sclerae, moist conjunctiva, no lid-lag, PERRLA, ENMT: Oropharynx clear, no erythema, exudates Neck: Supple, FROM, no masses, or JVD, No carotid bruits, No thyromegaly Lungs: Clear to auscultation, Clear to percussion, Normal respiratory effort, no accessory muscle use Cardiovascular: Heart regular in rate and rhythm, No murmurs, gallops, or rubs, No peripheral edema Abdominal: Soft, Nontender, no guarding, rebound or rigidity, Normoactive bowel sounds, No hepatomegaly, No splenomegaly, No palpable mass Skin: Normal temperature, tone, texture, turgor, no induration, No subcutaneous nodules, No rash, lesions, No ulcers Extremities: Left middle finger wrapped In gauze No digital cyanosis, No clubbing, Pedal pulses intact and symmetrical, Radial pulses intact and symmetrical, No calf tenderness Psychiatric: Alert and oriented to person, place and time, appropriate affect, intact judgement Neuro: Muscles Strength 5/5 in all 4 extremities, Sensation to light touch grossly present throughout, Cranial nerves II-XII grossly intact, no focal sensory deficits - Labs CBC & Chem 7: 05/15/20 14:46 05/15/20 14:46 Labs: Abnormal Lab Results - Last 24 Hours (Table) 05/15/20 05/15/20 Range/Units 14:46 14:46 Lymphocytes # 0.7 L (1.0-4.8) k/uL Sodium 135 L (137-145) mmol/L BUN 25 H (7-17) mg/dL Creatinine 1.37 H (0.52-1.04) mg/dL Glucose 150 H (74-99) mg/dL Total Protein 6.2 L (6.3-8.2) g/dL Assessment and Plan Plan: Gram-negative left middle finger cellulitis and osteomyelitis IV antibiotics treatment with cefepime Received gentamicin on admission. Ortho and infectious disease following Planning PICC line for several weeks of IV antibiotics treatment. Ibuprofen when necessary for pain COPD Chronic and stable Resume bronchodilators
--- NOTE | 2020-05-16 16:46 | PN ---
PROGRESS NOTE DATE OF SERVICE: 05/16/2020 REASON FOR FOLLOWUP: Left middle finger osteomyelitis. INTERVAL HISTORY: The patient is currently afebrile. The patient overall pain and discomfort to the left middle finger has decreased intensity. The patient denies having any chest pain or shortness of breath. No cough. No abdominal pain. No diarrhea. PHYSICAL EXAMINATION: Blood pressure 157/70 with a pulse of 80, temperature 97. She is 94% on room air. General description is an elderly female up in the bed in no distress. Respiratory system: Unlabored breathing. Clear to auscultation anteriorly. Heart S1, S2. Regular rate and rhythm. Abdomen: Soft, no tenderness. LABS: Culture done on the did show Pseudomonas aeruginosa. DIAGNOSTIC IMPRESSION AND PLAN: Patient with Pseudomonas aeruginosa, left middle finger infection and osteomyelitis in this patient currently covered with cefepime. She will need a PICC line for outpatient IV antibiotic therapy at home, we will arrange on Monday. Continue supportive care. Local wound care with Aquacel silver packing of the wound to be changed every 48 hours. MMODL / IJN: [id number] /
[2020-05-16] MEDS: MELATONIN 5 MG TABLET PO SCH (20:04)
[2020-05-16] MEDS: IBUPROFEN 400 MG TAB PO PRN (21:19)
[2020-05-17 06:40] LABS: Basophils % (A) 1 %; Eosinophils # (A) 0.3 k/uL (0-0.7); Eosinophils % (A) 5 %; HGB 13.3 gm/dL (11.4-16.0); Lymphocytes # (A) 0.9 k/uL (1.0-4.8); Lymphocytes % (A) 14 %; MCH 29.7 pg (25.0-35.0); MCHC 31.6 g/dL (31.0-37.0); MCV 93.9 fL (80.0-100.0); Mean Platelet Volume 7.3; Monocytes # (A) 0.5 k/uL (0-1.0); Monocytes % (A) 8 %; Neutrophils # (A) 4.3 k/uL (1.3-7.7); Neutrophils % (A) 71 %; Platelet Count 209 k/uL (150-450); RBC 4.47 m/uL (3.80-5.40); RDW 13.9 % (11.5-15.5)
[2020-05-17] MEDS: SYMBICORT 160-4.5 MCG INHALER INHALATION SCH ×2 (08:25→20:26)
[2020-05-17] MEDS: ALBUTEROL NEBULIZED 2.5 MG/3 ML INHALATION SCH ×3 (08:25→20:26)
[2020-05-17] MEDS: NICOTINE 14MG/24HR PATCH TRANSDERM SCH (08:38)
[2020-05-17] MEDS: CEFEPIME 2 GM in SODIUM CHLORIDE 0.9% 100 ML IVPB SCH (08:38)
[2020-05-17] MEDS: SODIUM CHLORIDE 0.9% 1,000 ML IV SCH (08:39)
[2020-05-17] MEDS: ACETAMINOPHEN TAB 325 MG TAB PO PRN (08:48)
[2020-05-17 09:33] LABS: African American GFR (CKD) 46.4 (60.0-200.0); Albumin 3.6 g/dL (3.80-4.90); Albumin/Globulin Ratio 2.12 (1.60-3.17); Anion Gap 4.9 mmol/L (4.00-12.00); BUN/Creat Ratio 17.5 Ratio (12.00-20.00); Calcium 8.9 mg/dL (8.7-10.3); Carbon Dioxide 30.1 mmol/L (21.6-31.8); Globulin 1.7 g/dL (1.6-3.3); Magnesium 1.6 mg/dL (1.5-2.4); Phosphorus 3.4 mg/dL (2.4-5.1); Potassium 4.3 mmol/L (3.5-5.5); Total Bilirubin 0.6 mg/dL (0.3-1.2); Total Protein 5.3 g/dL (6.2-8.2)
--- NOTE | 2020-05-17 10:19 | P.PN ---
Subjective Progress Note Date: 05/17/20 This is an 89-year-old female who is being followed for an infection of the left middle finger. We have been following in our office for infection to the left middle finger. She was initially seen on 05/14/2020 and had incision and drainage in the office with irrigation with saline and then packing of the wound. Cultures were obtained which showed gram-negative bacilli. She had had a previous culture by urgent care which showed Pseudomonas. Her symptoms have persisted. She continues to have pain and swelling as well as redness to the finger. She has failed outpatient conservative treatment. It is recommended she be admitted for IV antibiotics and evaluation with infectious disease. 05/17/19: Patient is seen and examined bedside this morning. Patient states she is feeling well and has no complaints today. She states the swelling and pain in her left middle finger has continued decreased over the past day. She is experiencing less pain with ROM of the finger. She is tolerating her diet well. Patient has not had a bowel movement since admission, she is passing gas and denies abdominal pain. Patient denies chest pain, shortness of breath, nausea, vomiting, fevers, chills. Vital signs stable, patient remains afebrile. Objective - Vital Signs Vital signs: Vital Signs Temp 98.2 F 05/17/20 07:55 Pulse 71 05/17/20 08:34 Resp 16 05/17/20 08:34 BP 144/77 05/17/20 07:55 Pulse Ox 94 L 05/17/20 07:55 Intake & Output 05/16/20 05/17/20 05/17/20 18:59 06:59 18:59 Weight 50.802 kg Other: Voiding Method Toilet # Voids 3 1 - Exam On examination, the patient is sitting up in bed in no apparent distress. She is currently afebrile. She is alert and orientated x3. On inspection of the left hand, there is a clean, dry, intact dressing in place of the left middle finger. There is surrounding swelling and ecchymosis of the finger and dorsal hand. There is limited motion of the finger. Sensation is intact to light touch of the fingertip. Finger appears warm and well perfused. Bilateral calves are soft and non-tender to palpation. No signs of DVT. Abdomen is soft and non-distended. - Labs CBC & Chem 7: 05/17/20 06:04 05/17/20 06:04 Labs: Abnormal Lab Results - Last 24 Hours (Table) 05/17/20 05/17/20 Range/Units 06:04 06:04 Lymphocytes # 0.9 L (1.0-4.8) k/uL Est GFR (CKD-EPI)AfAm 46.4 L (60.0-200.0) Est GFR (CKD-EPI)NonAf 40.0 L (60.0-200.0) Total Protein 5.3 L (6.2-8.2) g/dL Albumin 3.60 L (3.80-4.90) g/dL Microbiology - Last 24 Hours (Table) 05/15/20 14:46 Blood Culture - Preliminary Blood No Growth after 24 hours Assessment and Plan Assessment: Cellulitis LMF with possible osteomyelitis Plan: - No surgical intervention planned at this time. Continue supportive care. - Continue IV antibiotics and local wound care under the discretion of Dr. Casey. Patient currently has aquacel silver packing in place per Dr. Casey. Planning for PICC line placement tomorrow. - Cultures obtained in the office in 05/14/20 show Pseudomonas. Blood cultures showing no growth after 24 hours. - We will continue to follow patient closely and make recommendations as needed.
--- NOTE | 2020-05-17 16:05 | P.PN ---
Subjective Progress Note Date: 05/17/20 Principal diagnosis: Left middle finger pain Patient feeling better, no overnight events. No fevers or chills. Objective - Vital Signs Vital signs: Vital Signs Temp 98.3 F 05/17/20 14:07 Pulse 91 05/17/20 14:07 Resp 16 05/17/20 14:07 BP 161/82 05/17/20 14:07 Pulse Ox 96 05/17/20 14:07 Intake & Output 05/16/20 05/17/20 05/17/20 18:59 06:59 18:59 Weight 50.802 kg Other: Voiding Method Toilet # Voids 3 1 - Exam Constitutional: No acute distress, conversant, pleasant Eyes:Anicteric sclerae, moist conjunctiva, no lid-lag, PERRLA, ENMT: Oropharynx clear, no erythema, exudates Neck: Supple, FROM, no masses, or JVD, No carotid bruits, No thyromegaly Lungs: Clear to auscultation, Clear to percussion, Normal respiratory effort, no accessory muscle use Cardiovascular: Heart regular in rate and rhythm, No murmurs, gallops, or rubs, No peripheral edema Abdominal: Soft, Nontender, no guarding, rebound or rigidity, Normoactive bowel sounds, No hepatomegaly, No splenomegaly, No palpable mass Skin: Normal temperature, tone, texture, turgor, no induration, No subcutaneous nodules, No rash, lesions, No ulcers Extremities: Left middle finger wrapped In gauze No digital cyanosis, No clubbing, Pedal pulses intact and symmetrical, Radial pulses intact and symmetrical, No calf tenderness Psychiatric: Alert and oriented to person, place and time, appropriate affect, intact judgement Neuro: Muscles Strength 5/5 in all 4 extremities, Sensation to light touch grossly present throughout, Cranial nerves II-XII grossly intact, no focal sensory deficits - Labs CBC & Chem 7: 05/17/20 06:04 05/17/20 06:04 Labs: Abnormal Lab Results - Last 24 Hours (Table) 05/17/20 05/17/20 Range/Units 06:04 06:04 Lymphocytes # 0.9 L (1.0-4.8) k/uL Est GFR (CKD-EPI)AfAm 46.4 L (60.0-200.0) Est GFR (CKD-EPI)NonAf 40.0 L (60.0-200.0) Total Protein 5.3 L (6.2-8.2) g/dL Albumin 3.60 L (3.80-4.90) g/dL Microbiology - Last 24 Hours (Table) 05/15/20 14:46 Blood Culture - Preliminary Blood No Growth after 24 hours Assessment and Plan Plan: Gram-negative left middle finger cellulitis and osteomyelitis IV antibiotics treatment with cefepime Received gentamicin on admission. Ortho and infectious disease following Planning PICC line tomorrow for several weeks of IV antibiotics treatment. Ibuprofen when necessary for pain COPD Chronic and stable Resume bronchodilators
[2020-05-17] MEDS: MELATONIN 5 MG TABLET PO SCH (20:55)
[2020-05-17] MEDS: CEFEPIME 1 GM in SODIUM CHLORIDE 0.9% 50 ML IVPB SCH (20:55)
[2020-05-17] MEDS: IBUPROFEN 400 MG TAB PO PRN (20:55)
--- NOTE | 2020-05-17 21:59 | PN ---
PROGRESS NOTE DATE OF SERVICE: 05/17/2020. REASON FOR FOLLOWUP: Left middle finger osteomyelitis and Pseudomonas aeruginosa. INTERVAL HISTORY: The patient is currently afebrile. Patient overall pain and discomfort to the left middle finger has decreased. Denies having any chest pain. No shortness of breath or cough. No abdominal pain or diarrhea. PHYSICAL EXAMINATION: On examination, her vital signs are stable. General description is an elderly female lying in bed in no distress. Respiratory system: Unlabored breathing. Clear to auscultation anteriorly. Heart S1, S2. Regular rate and rhythm. ABDOMEN: Soft, no tenderness. Left middle finger swelling and redness has decreased. DIAGNOSTIC IMPRESSION AND PLAN: Patient with left middle finger chronic nonhealing wound with concern for underlying osteomyelitis on the basis of the x-rays taken at the Orthopedic office. Cultures with Pseudomonas. Patient clinically responded to the cefepime. Local care with Aquacel silver dressing. She will get a PICC line for outpatient IV antibiotic therapy tomorrow. Continue supportive care. MMODL / IJN: [id number] /
[2020-05-18] MEDS: ALBUTEROL NEBULIZED 2.5 MG/3 ML INHALATION SCH ×2 (07:30→20:10)
[2020-05-18] MEDS: SYMBICORT 160-4.5 MCG INHALER INHALATION SCH ×2 (07:32→20:10)
[2020-05-18] MEDS: NICOTINE 14MG/24HR PATCH TRANSDERM SCH (07:46)
[2020-05-18] MEDS: CEFEPIME 1 GM in SODIUM CHLORIDE 0.9% 50 ML IVPB SCH ×2 (07:46→21:17)
--- NOTE | 2020-05-18 10:00 | P.NPCON ---
History of Present Illness - Reason for Consult acute renal failure, chronic renal failure - History of Present Illness Reason for consultation: Acute kidney injury and chronic kidney disease History of present illness: Patient is a 89-year-old female seen in consultation for acute kidney injury on chronic kidney disease and PICC line clearance. Patient's creatinine on admission was 1.37 and is 1.2 today. Patient has chronic kidney disease stage IIIB with baseline creatinine in the range of 1-1.1. Patient presented to the hospital due to pain in her left middle fingertip. She was noted to have a wound. She is maintained on antibiotics now and was also taking antibiotics outpatient without any improvement. There is concern for underlying osteomyelitis and she will need a PICC line to continue with outpatient antibiotics. Culture is positive for Pseudomonas. Patient states she takes Motrin as needed. She is receiving ibuprofen in the hospital for pain as needed. No history of diabetes or high blood pressure. No vomiting or diarrhea. No abdominal pain. No fever or chills. Vital signs are stable. General: The patient appeared well nourished and normally developed. HEENT: Head exam is unremarkable. Neck is without jugular venous distension. LUNGS: Breath sounds decreased. HEART: Rate and Rhythm are regular. ABDOMEN: Soft, nontender. EXTREMITITES: No edema. Past Medical History Past Medical History: COPD, Pneumonia Additional Past Medical History / Comment(s): palpatations,murmur, past kidney stones, past benign colon poly History of Any Multi-Drug Resistant Organisms: None Reported Past Surgical History: Bowel Resection, Cholecystectomy Additional Past Surgical History / Comment(s): "i had a colon poly imbedded in lining of colon-in order to get it out they had to take section of colon out", cataracts removed has lens implants Past Anesthesia/Blood Transfusion Reactions: No Reported Reaction Additional Past Anesthesia/Blood Transfusion Reaction / Comment(s): has never r ecieved any blood transfusions Past Psychological History: No Psychological Hx Reported Additional Psychological History / Comment(s): pt lives alone(lost her in october 2017). pt is independant,drives. family lives nearby. has a nebulizer. Smoking Status: Former smoker Past Alcohol Use History: None Reported Additional Past Alcohol Use History / Comment(s): started smoking at age 18,quit 1961 smoked less than 1 ppd Past Drug Use History: None Reported - Past Family History Mother Family Medical History: Cancer Father Family Medical History: Congestive Heart Failure (CHF) Medications and Allergies Home Medications Medication Instructions Recorded Confirmed Type Budesonide-Formot 160-4.5 Mcg 2 puff INHALATION RT-BID 03/01/18 05/15/20 History [Symbicort 160-4.5 Mcg Inhaler] Albuterol Nebulized [Ventolin 2.5 mg INHALATION RT-BID 05/15/20 05/15/20 History Nebulized] Ibuprofen [Motrin] 800 mg PO BID PRN 05/15/20 05/15/20 History Levofloxacin [Levaquin] 500 mg PO DAILY 05/15/20 05/15/20 History Allergies Allergy/AdvReac Type Severity Reaction Status Date / Time Sulfa (Sulfonamide Allergy Unknown Verified 05/15/20 13:30 Antibiotics) Childhood Physical Exam Vitals: Vital Signs Temp Pulse Pulse Resp BP Pulse Ox 05/18/20 07:41 76 05/18/20 07:33 98.4 F 76 70 17 158/78 94 L 05/18/20 01:59 97.4 F L 72 16 138/76 93 L 05/17/20 20:38 76 05/17/20 20:27 72 05/17/20 19:12 98.4 F 71 24 148/67 95 05/17/20 14:07 98.3 F 91 16 161/82 96 Intake and Output 05/17/20 05/18/20 05/18/20 22:59 06:59 14:59 Other: Voiding Method Toilet # Voids 3 2 Results - Lab Results Most recent lab results Calcium 8.9 mg/dL (8.7-10.3) 05/17/20 06:04 Phosphorus 3.4 mg/dL (2.4-5.1) 05/17/20 06:04 Magnesium 1.6 mg/dL (1.5-2.4) 05/17/20 06:04 05/17/20 06:04 05/17/20 06:04 Assessment and Plan Plan: Assessment: 1. Acute kidney injury mostly prerenal secondary to nonsteroidals and infection. Improving. Creatinine was 1.37 on admission and is 1.2 today. 2. Chronic kidney disease stage IIIB with baseline creatinine in the range of 1-1.2. Etiologies nephrosclerosis. 3. Left middle finger wound with concern for osteomyelitis. Maintained on antibiotics. Plan: Encourage oral intake. Avoid nephrotoxins, including nonsteroidals on a regular basis. Cleared for PICC line placement in her dominant arm. Check urinalysis. Thank you for the consultation. I will continue to follow the patient with you during her hospital stay.
--- NOTE | 2020-05-18 10:24 | P.DS ---
Providers Date of admission: 05/15/20 13:03 Expected date of discharge: 05/18/20 Attending physician: Phillip Darnell Consults: 05/15/20 12:02 Consult Physician Routine Consulting Provider: Kaila Morgan Consult Reason/Comments: Medical management Do you want consulting provider notified?: Yes Consult Physician Routine Consulting Provider: Russ Casey Consult Reason/Comments: Abx recommendations and wound management LMF Do you want consulting provider notified?: Yes 05/17/20 15:09 Consult Physician Routine Consulting Provider: Alexis Andres Consult Reason/Comments: PICC line placement Do you want consulting provider notified?: Yes Primary care physician: Phillip Darnell - Discharge Diagnosis(es) (1) Cellulitis of left middle finger Current Visit: No Status: Acute (2) Osteomyelitis of finger of left hand Current Visit: Yes Status: Acute Hospital Course: This is an 89-year-old female who we have been following in our office for infection to the left middle finger. She was initially seen on 05/14/2020 and oneal d incision and drainage in the office with irrigation with saline and then packing of the wound. Cultures were obtained which showed gram-negative bacilli. She had had a previous culture by urgent care which showed Pseudomonas. Her symptoms have persisted. She continues to have pain and swelling as well as redness to the finger. She has failed outpatient conservative treatment. She was admitted for IV antibiotics and evaluation with infectious disease on 05/15/2020. The patient is doing well from orthopedic standpoint. Infectious disease is managing her antibiotics and wound care. She may be discharged to home today after PICC line is inserted. IV antibiotics to be managed by Dr. Casey. Patient Condition at Discharge: Stable Plan - Discharge Summary New Discharge Prescriptions: No Action Budesonide-Formot 160-4.5 Mcg [Symbicort 160-4.5 Mcg Inhaler] 2 puff INHALATION RT-BID Levofloxacin [Levaquin] 500 mg PO DAILY Albuterol Nebulized [Ventolin Nebulized] 2.5 mg INHALATION RT-BID Ibuprofen [Motrin] 800 mg PO BID PRN PRN Reason: Pain Discharge Medication List Budesonide-Formot 160-4.5 Mcg [Symbicort 160-4.5 Mcg Inhaler] 2 puff INHALATION RT-BID 11/01/18 [History] Albuterol Nebulized [Ventolin Nebulized] 2.5 mg INHALATION RT-BID 05/15/20 [History] Ibuprofen [Motrin] 800 mg PO BID PRN 05/15/20 [History] Levofloxacin [Levaquin] 500 mg PO DAILY 05/15/20 [History] Follow up Appointment(s)/Referral(s): Phillip Darnell MD [Primary Care Provider] - 1 Week Activity/Diet/Wound Care/Special Instructions: May discharged to home today if cleared medically and with infectious disease. Antibiotics and wound care per infectious disease. May take ibuprofen 800 mg 1 by mouth twice a day for pain. Discharge Disposition: HOME WITH HOME HEALTH SERVICES
--- NOTE | 2020-05-18 10:31 | CDI ---
Documentation Clarification Form Date: 05/18/2020 10:29 AM CDS: Kat PachecoCHAMP, CCDS Admit Date: 05/15/2020 13:03 Patient Name: Norma Kenyon Discharge Date: ATTENTION: The Clinical Documentation Specialists (CDI) and [facility] Coding Staff appreciate your assistance in clarifying documentation. Please respond to the clarification below the line at the bottom and electronically sign. The CDI & [facility] Coding staff will review the response and follow-up if needed. Please note: Queries are made part of the Legal Health Record. If you have any questions, please contact the author of this message via ITS. Dear Dr. Phillip Darnell: Osteomyelitis has been documented in the Orthopedic History & Physical and subsequent consults and progress notes without the acuity. History/Risk Factors: COPD, Pneumonia, Former smoker. Clinical Indicators: Presented as a direct admit with Cellulitis left middler finger and osteomyelitis per office Xray, failed outpatient treatment with I&D and irrigation & packing. VS 05/15: T 98.4, P 96, R 18, BP 133/69 - 155/64, PO 93 RA Labs 05/15: Lymph 0.7*, Na 135*, BUN 25^, Cr 1.37^, Glucose 150^, T Protein 6.2*. Cultures (Office): Gram-negative bacilli, Pseudomonas X-Ray Results: Per documentation, office Xray of LMF: possible osteomyelitis. Treatment: IV Cefepime, IV Gentamicin In your professional opinion, please specify acuity of the osteomyelitis: Acute Chronic Subacute Unable to Determine (Last Revision: January 2017) Chron ic MTDD
--- NOTE | 2020-05-18 13:35 | P.PN ---
Subjective Progress Note Date: 05/18/20 Principal diagnosis: Left middle finger pain Patient continues to do well currently, no major complaints. No fevers or chills. Her left middle fingers is feeling better. Objective - Vital Signs Vital signs: Vital Signs Temp 98.4 F 05/18/20 07:33 Pulse 76 05/18/20 07:41 Resp 17 05/18/20 07:33 BP 158/78 05/18/20 07:33 Pulse Ox 94 L 05/18/20 07:33 Intake & Output 05/17/20 05/18/20 05/18/20 18:59 06:59 18:59 Other: Voiding Method Toilet Toilet # Voids 3 2 - Exam Constitutional: No acute distress, conversant, pleasant Eyes:Anicteric sclerae, moist conjunctiva, no lid-lag, PERRLA, ENMT: Oropharynx clear, no erythema, exudates Neck: Supple, FROM, no masses, or JVD, No carotid bruits, No thyromegaly Lungs: Clear to auscultation, Clear to percussion, Normal respiratory effort, no accessory muscle use Cardiovascular: Heart regular in rate and rhythm, No murmurs, gallops, or rubs, No peripheral edema Abdominal: Soft, Nontender, no guarding, rebound or rigidity, Normoactive bowel sounds, No hepatomegaly, No splenomegaly, No palpable mass Skin: Normal temperature, tone, texture, turgor, no induration, No subcutaneous nodules, No rash, lesions, No ulcers Extremities: Left middle finger wrapped In gauze No digital cyanosis, No clubbing, Pedal pulses intact and symmetrical, Radial pulses intact and symmetrical, No calf tenderness Psychiatric: Alert and oriented to person, place and time, appropriate affect, intact judgement Neuro: Muscles Strength 5/5 in all 4 extremities, Sensation to light touch grossly present throughout, Cranial nerves II-XII grossly intact, no focal sensory deficits - Labs CBC & Chem 7: 05/17/20 06:04 05/17/20 06:04 Labs: Microbiology - Last 24 Hours (Table) 05/15/20 14:46 Blood Culture - Preliminary Blood No Growth after 48 hours Assessment and Plan Plan: Gram-negative left middle finger cellulitis and osteomyelitis IV antibiotics treatment with cefepime Received gentamicin on admission. Ortho and infectious disease following Planning PICC line today for several weeks of IV antibiotics treatment. Ibuprofen when necessary for pain COPD Chronic and stable Resume bronchodilators Anticipated discharge: Tomorrow Disposition: Home
[2020-05-18] MEDS: ACETAMINOPHEN TAB 325 MG TAB PO PRN ×2 (14:30→21:16)
--- NOTE | 2020-05-18 14:35 | PN ---
PROGRESS NOTE DATE OF SERVICE: 05/18/2020 REASON FOR FOLLOWUP: Left middle finger Pseudomonas osteomyelitis. INTERVAL HISTORY: The patient is currently afebrile. The patient is feeling better. Breathing comfortably. Denies having any chest pain or shortness of breath or cough. No nausea. No vomiting. No abdominal pain. Pain to the left middle finger is currently controlled. PHYSICAL EXAMINATION: Blood pressure 158/78 with a pulse of 70, temperature 98.4. She is 94% on room air. General description is an elderly female lying in bed in no distress. RESPIRATORY SYSTEM: Unlabored breathing, clear to auscultation anteriorly. HEART: S1, S2. Regular rate and rhythm. ABDOMEN: Soft, no tenderness. The left middle finger is currently dressed, no drainage on the dressing. LABS: No new labs have been obtained today. DIAGNOSTIC IMPRESSION AND PLAN: Patient with left middle finger chronic nonhealing wound with underlying osteomyelitis. The patient is currently waiting for a PICC line. Patient on outpatient antibiotic arrangement for discharge. Plan for cefepime 2 grams q.12 for 6 weeks. Local wound care with Aquacel Silver dressing and close outpatient followup. MMODL / IJN: [id number] /
[2020-05-18] MEDS: NICOTINE 7MG/24HR PATCH TRANSDERM SCH (15:40)
[2020-05-18] MEDS: MELATONIN 5 MG TABLET PO SCH (21:17)
[2020-05-18 21:36] LABS: Appearance,Urine Clear (Clear); Bilirubin,Urine Negative (Negative); Blood,Urine Small (Negative); Color,Urine Light Yellow; Glucose,Urine (UA) Negative (Negative); Ketones,Urine Negative (Negative); Leukocyte Esterase,Urine Negative (Negative); Mucus,Urine Rare /hpf; Nitrite,Urine Negative (Negative); Protein,Urine Negative (Negative); RBC,Urine 14 /hpf (0-5); Specific Gravity,Urine 1.009 (1.001-1.035); Squamous Epithelial Cell,Urine <1 /hpf (0-4); Urobilinogen,Urine <2.0 mg/dL (<2.0); WBC,Urine 1 /hpf (0-5)
[2020-05-19] MEDS: SODIUM CHLORIDE 0.9% 1,000 ML IV SCH (06:22)
[2020-05-19] MEDS: SYMBICORT 160-4.5 MCG INHALER INHALATION SCH (09:19)
[2020-05-19] MEDS: ALBUTEROL NEBULIZED 2.5 MG/3 ML INHALATION SCH (09:19)
[2020-05-19] MEDS: CEFEPIME 1 GM in SODIUM CHLORIDE 0.9% 50 ML IVPB SCH ×2 (09:34→17:02)
[2020-05-19] MEDS ORDERED: bisacodyL 5 MG TABLET.DR PO STA (09:58)
[2020-05-19] MEDS ORDERED: ATROPINE OPHTH SOLN 1% 5ML BTL SUBLINGUAL PRN (10:00)
--- NOTE | 2020-05-19 11:04 | P.PN ---
Subjective Progress Note Date: 05/19/20 Principal diagnosis: left finger infection Patient is an 89-year-old female with a history of COPD, heart murmur, and prior kidney stones who had been following with orthopedic associates for infection of her left third digit. She had undergone incision and drainage on 05/14 along with oral antibiotics. This continued to worsen and she was found to have Pseudomonas on the initial culture. She was admitted for further monitoring. She has been following with infectious disease and antibiotics have been optimized. Currently awaiting PICC line. Patient seen and examined at bedside. She states her pain is well controlled other than when they're changing the dressing or she bumps her finger. She reports some constipation. No vomiting but mild nausea. No chest pain or shortness of breath. Overall doing well. Excited to go home once her PICC line is placed. General: non toxic, no distress, appears at stated age Derm: warm, dry, Dressing in place over left 3rd digit. Nursing had just replaced dressing Head: atraumatic, normocephalic, symmetric Eyes: EOMI, no lid lag, anicteric sclera Mouth: no lip lesion, mucus membranes moist Cardiovascular: S1S2 reg, no murmur, positive posterior tibial pulse bilateral, Lungs: CTA bilateral, no rhonchi, no rales , no accessory muscle use Abdominal: soft, nontender to palpation, no guarding, no appreciable organomegaly Ext: no gross muscle atrophy, no edema, no contractures Neuro: CN II-XI grossly intact, no focal neuro deficits Psych: Alert, oriented, appropriate affect Left third digit osteomyelitis, Pseudomonas - Cefepime for [address] Casey - Awaiting PICC line - Out patient follow-up with Dr. Casey and Dr. Darnell. COPD without exacerbation - [place] home symbicort and albuterol Tobacco abuse - cessation - nicotine replacement. JUAN on CKD stage IIIB -Baseline creatinine 1.1 -Nephro recommendations appreciated -Avoid NSAIDs on discharge. This was added to instructions. Hyponatremia secondary to dehydration -Resolved Medically optimized for discharge once PICC in place. Thank you for allowing us to participate in the care of this kaylah patient. Medication reconciliation addressed. Follow-up with PCP in 3-4 days. Patient follows with Dr. Jay Objective - Vital Signs Vital signs: Vital Signs Temp 98.3 F 05/19/20 08:16 Pulse 75 05/19/20 09:30 Resp 20 05/19/20 08:16 BP 155/83 05/19/20 08:16 Pulse Ox 93 L 05/19/20 08:16 Intake & Output 05/18/20 05/19/20 05/19/20 18:59 06:59 18:59 Intake Total 600 Balance 600 Intake: Oral 600 Other: Voiding Method Toilet Toilet # Voids 1 2 - Labs CBC & Chem 7: 05/17/20 06:04 05/17/20 06:04 Labs: Abnormal Lab Results - Last 24 Hours (Table) 05/18/20 Range/Units 21:27 Urine Blood Small H (Negative) Urine RBC 14 H (0-5) /hpf Urine Mucus Rare H (None) /hpf Microbiology - Last 24 Hours (Table) 05/15/20 14:46 Blood Culture - Preliminary Blood No Growth after 72 hours
--- NOTE | 2020-05-19 11:06 | P.PN ---
Subjective Patient is seen in follow-up for acute kidney injury on chronic kidney disease. Creatinine 1.2 as of yesterday. Awaiting PICC line placement. No active complaints. Vital signs are stable. General: The patient appeared well nourished and normally developed. HEENT: Head exam is unremarkable. Neck is without jugular venous distension. LUNGS: Breath sounds decreased. HEART: Rate and Rhythm are regular. ABDOMEN: Soft, nontender. EXTREMITITES: No edema. No drainage noted from the finger. Objective - Vital Signs Vital signs: Vital Signs Temp 98.3 F 05/19/20 08:16 Pulse 75 05/19/20 09:30 Resp 20 05/19/20 08:16 BP 155/83 05/19/20 08:16 Pulse Ox 93 L 05/19/20 08:16 Intake & Output 05/18/20 05/19/20 05/19/20 18:59 06:59 18:59 Intake Total 600 Balance 600 Intake: Oral 600 Other: Voiding Method Toilet Toilet # Voids 1 2 - Labs CBC & Chem 7: 05/17/20 06:04 05/17/20 06:04 Labs: Abnormal Lab Results - Last 24 Hours (Table) 05/18/20 Range/Units 21:27 Urine Blood Small H (Negative) Urine RBC 14 H (0-5) /hpf Urine Mucus Rare H (None) /hpf Microbiology - Last 24 Hours (Table) 05/15/20 14:46 Blood Culture - Preliminary Blood No Growth after 72 hours Assessment and Plan Plan: Assessment: 1. Acute kidney injury mostly prerenal secondary to nonsteroidals and infection. Improving. Creatinine was 1.37 on admission and 1. was of yesterday. No proteinuria on UA. 2. Chronic kidney disease stage IIIB with baseline creatinine in the range of 1-1.2. Etiologies nephrosclerosis. 3. Left middle finger wound with concern for osteomyelitis. Maintained on antibiotics. Plan: Encourage oral intake. Avoid nephrotoxins, including nonsteroidals on a regular basis. Cleared for PICC line placement in her dominant arm. Stable for discharge from nephrology standpoint. Follow up outpatient in 2 weeks.
--- NOTE | 2020-05-19 11:54 | P.PN ---
Progress Note - Text Progress Note Date: 05/19/20 The patient's discharge was held yesterday due to inability to get the PICC line in secondary to radiology scheduling conflict. She is awaiting PICC line insertion today may be discharged to home if cleared medically. See previous discharge summary and orders.
[2020-05-19 12:27] VITALS: PULSE 79; RESP 18; TEMP 98.2
[2020-05-19] MEDS ORDERED: LIDOCAINE 1% INJ 10MG/ML (20 ML MDV) ONE (12:31)
[2020-05-19] MEDS ORDERED: LIDOCAINE 1% INJ 10MG/ML (20 ML MDV) SQ ONE (12:52)
--- NOTE | 2020-05-19 13:20 | IR ---
PICC LINE PLACEMENT: HISTORY: Infection requiring long-term antibiotic therapy PROCEDURE: Ultrasound and fluoroscopic guidance of PICC line placement. COMPLICATIONS: None ANESTHESIA: 1. 1% Lidocaine locally. FINDINGS/TECHNIQUE: The procedure was explained to the patient. The risks, complications, benefits and alternatives were discussed and any questions were answered. Informed consent was obtained. The patient was placed supine on the fluoroscopic table and prepped and draped in the usual sterile fash ion. Utilizing a 21 gauge needle and sonographic and fluoroscopic guidance, access in the right bas ilic vein was achieved and there is placement of a 0.018 guidewire. The vein is patent. A 4-F sheat h was placed over the guidewire. The guidewire and dilator were removed and a 4-F. PICC line was dede ming through the sheath with the tip at the level of the SVC. The sheath was removed, the catheter wa s flushed and sutured into position. The patient was stable throughout the procedure and remained st able upon discharge from the Department of Radiology. The vein puncture was patent under ultrasound. A peña scale image was obtained to document patency of the vein punctured. All elements of the maximal barrier technique were utilized. FLUOROSCOPY TIME: 0.3 minutes and T1 images IMPRESSION: Successful PICC line placement under ultrasound and fluoroscopic guidance.
--- NOTE | 2020-05-19 15:02 | PN ---
PROGRESS NOTE DATE OF SERVICE: 05/19/2020 REASON FOR FOLLOWUP: Left middle finger osteomyelitis, Pseudomonas. INTERVAL HISTORY: The patient is currently afebrile. Patient is feeling better. Breathing comfortably. The patient denies having any chest pain. No shortness of breath or cough. No nausea, no vomiting. No abdominal pain or any worsening pain to the left middle finger area. PHYSICAL EXAMINATION: Blood pressure 155/83 with a pulse of 68, temperature 98.3. She is 93% on room air. General description is an elderly female lying in bed in no distress. RESPIRATORY SYSTEM: Unlabored breathing, clear to auscultation anteriorly. HEART: S1, S2. Regular rate and rhythm. ABDOMEN: Soft, no tenderness. Left middle finger is currently dressed up. No obvious drainage on the dressing. LABS: Blood culture negative. DIAGNOSTIC IMPRESSION AND PLAN: Patient with left middle finger osteomyelitis, Pseudomonas, we are waiting for the outpatient antibiotic arrangement on discharge, that is for cefepime . 2 grams q.12 for 6 weeks. Local wound care with Aquacel Silver dressing. Follow up in the office or wound care in one week. MMODL / IJN: [id number] /
[2020-05-19] MEDS: NICOTINE 7MG/24HR PATCH TRANSDERM SCH (15:49)
[2020-05-19 16:34] VITALS: BP 131/65
[2020-05-19] MEDS: ACETAMINOPHEN TAB 325 MG TAB PO PRN (17:03)
== END 2020-05-19 18:11 | disposition home health service (06) | DRG 540 ==
LOC: 4SSUR 13:03 → OBSVTOIN 13:03 → 6PED 05-18 10:11
PROVIDERS: ADMIT Orthopaedic Surgery; ATTEND Orthopaedic Surgery
PROC: 02HV33Z Insertion of Infusion Device into Superior Vena Cava, Percutaneous Approach (ICD-10-PCS; principal; 2020-05-19 09:15)
DX: M86.642 Other chronic osteomyelitis, left hand (principal); E87.1 Hypo-osmolality and hyponatremia; N17.9 Acute kidney failure, unspecified; B96.5 Pseudomonas (aeruginosa) (mallei) (pseudomallei) as the cause of diseases classified elsewhere; I12.9 Hypertensive chronic kidney disease with stage 1 through stage 4 chronic kidney disease, or unspecified chronic kidney disease; E86.0 Dehydration; J44.9 Chronic obstructive pulmonary disease, unspecified; K59.00 Constipation, unspecified; L03.012 Cellulitis of left finger; N18.32 Chronic kidney disease, stage 3b; T39.395A Adverse effect of other nonsteroidal anti-inflammatory drugs [NSAID], initial encounter; Z71.6 Tobacco abuse counseling; F17.210 Nicotine dependence, cigarettes, uncomplicated; Z79.2 Long term (current) use of antibiotics; Z79.51 Long term (current) use of inhaled steroids; Z82.49 Family history of ischemic heart disease and other diseases of the circulatory system; Z87.442 Personal history of urinary calculi; Z88.2 Allergy status to sulfonamides; Z98.42 Cataract extraction status, left eye; Z98.41 Cataract extraction status, right eye; Z96.1 Presence of intraocular lens; Z86.010 Personal history of colon polyps
CPT/HCPCS: 36573; 80053; 80170; 81001; 83735; 84100; 85025; 85652; 86140; 87040; 94640

== ENCOUNTER 2020-06-01 12:29 | Inpatient (IN) | payer MEDICARE ==
--- NOTE | 2020-06-01 13:21 | ED ---
General Adult HPI - General Chief complaint: Shortness of Breath Stated complaint: Irregular heart beat,SOB Time Seen by Provider: 06/01/20 12:44 Source: patient, RN notes reviewed Mode of arrival: ambulatory Limitations: no limitations - History of Present Illness Initial comments: Patient is a pleasant 89-year-old female presenting to the emergency Department with palpitations and dyspnea. Symptoms have progressed over the past few days. Patient is unaware of any history of arrhythmia however daughter states that she did find in her chart that she does have a history of what at some point. A lima does have occasional mild cough. Patient does feel short of breath, especially with exertion. No leg pain or leg swelling. Patient does feel like she has not been urinating as much and is concerned about urinary retention. Patient is on antibiotics through a PICC line secondary to left middle finger infection. This infection is improving. - Related Data Home Medications Medication Instructions Recorded Confirmed Budesonide-Formot 160-4.5 Mcg 2 puff INHALATION RT-BID 03/01/18 06/01/20 [Symbicort 160-4.5 Mcg Inhaler] Albuterol Nebulized [Ventolin 2.5 mg INHALATION RT-BID 05/15/20 06/01/20 Nebulized] Cefepime [Maxipime] 2 gm IVPB DAILY 06/01/20 06/01/20 Allergies Allergy/AdvReac Type Severity Reaction Status Date / Time Sulfa (Sulfonamide Allergy Unknown Verified 06/01/20 14:10 Antibiotics) Childhood Review of Systems ROS Statement: Those systems with pertinent positive or pertinent negative responses have been documented in the HPI. ROS Other: All systems not noted in ROS Statement are negative. Constitutional: Denies: fever Eyes: Denies: eye pain ENT: Denies: ear pain Respiratory: Reports: cough, dyspnea Cardiovascular: Reports: palpitations. Denies: chest pain Endocrine: Reports: fatigue Gastrointestinal: Denies: abdominal pain Genitourinary: Reports: as per HPI Musculoskeletal: Denies: back pain Skin: Denies: rash Neurological: Denies: weakness Past Medical History Past Medical History: COPD, Pneumonia Additional Past Medical History / Comment(s): palpatations,murmur, past kidney stones, past benign colon poly History of Any Multi-Drug Resistant Organisms: None Reported Past Surgical History: Bowel Resection, Cholecystectomy Additional Past Surgical History / Comment(s): "i had a colon poly imbedded in lining of colon-in order to get it out they had to take section of colon out", cataracts removed has lens implants Past Anesthesia/Blood Transfusion Reactions: No Reported Reaction Additional Past Anesthesia/Blood Transfusion Reaction / Comment(s): has never recieved any blood transfusions Past Psychological History: No Psychological Hx Reported Smoking Status: Former smoker Past Alcohol Use History: None Reported Past Drug Use History: None Reported - Past Family History Mother Family Medical History: Cancer Father Family Medical History: Congestive Heart Failure (CHF) General Exam Limitations: no limitations General appearance: alert, in no apparent distress Head exam: Present: normocephalic Eye exam: Present: normal appearance Neck exam: Present: normal inspection Respiratory exam: Present: normal lung sounds bilaterally Cardiovascular Exam: Present: tachycardia, irregular rhythm GI/Abdominal exam: Present: soft, distended (Mild). Absent: tenderness Extremities exam: Present: other (Left middle finger with swelling. Mild erythema. Healing incision.). Absent: pedal edema, calf tenderness Neurological exam: Present: alert Psychiatric exam: Present: normal affect, normal mood Skin exam: Present: normal color Course Vital Signs 06/01/20 06/01/20 06/01/20 12:35 13:46 14:00 Temperature 98.3 F Pulse Rate 145 H 142 H 122 H Respiratory 19 18 20 Rate Blood Pressure 128/76 131/104 126/87 O2 Sat by Pulse 93 L 98 97 Oximetry 06/01/20 06/01/20 14:19 14:40 Temperature Pulse Rate 108 H Respiratory 26 H Rate Blood Pressure O2 Sat by Pulse Oximetry EKG Findings - EKG Comments: EKG Findings:: A. fib with RVR, rate 136. QRS 74. QT 258. QTC 388. Normal axis. Nonspecific ST-T. Q waves V1 and V2. Medical Decision Making - Medical Decision Making Patient reevaluated. Heart rate between 110 and 125. Patient and family updated on results and plan. Case was discussed with Dr. Braun, who will admit covering for Dr. Jay. Cardiology has been paged for consult. Patient will be started on heparin. - Lab Data Result diagrams: 06/01/20 13:24 06/01/20 13:24 Lab Results 06/01/20 06/01/20 06/01/20 Range/Units 13:24 13:24 13:24 WBC 7.0 (3.8-10.6) k/uL RBC 3.94 (3.80-5.40) m/uL Hgb 11.9 (11.4-16.0) gm/dL Hct 36.4 (34.0-46.0) % MCV 92.3 (80.0-100.0) fL MCH 30.1 (25.0-35.0) pg MCHC 32.6 (31.0-37.0) g/dL RDW 13.4 (11.5-15.5) % Plt Count 252 (150-450) k/uL MPV 7.8 Neutrophils % 85 % Lymphocytes % 5 % Monocytes % 6 % Eosinophils % 3 % Basophils % 1 % Neutrophils # 6.0 (1.3-7.7) k/uL Lymphocytes # 0.4 L (1.0-4.8) k/uL Monocytes # 0.4 (0-1.0) k/uL Eosinophils # 0.2 (0-0.7) k/uL Basophils # 0.0 (0-0.2) k/uL PT 10.3 (9.0-12.0) sec INR 1.0 (<1.2) APTT 24.8 (22.0-30.0) sec Sodium 133 L (137-145) mmol/L Potassium 4.0 (3.5-5.1) mmol/L Chloride 101 (98-107) mmol/L Carbon Dioxide 24 (22-30) mmol/L Anion Gap 8 mmol/L BUN 21 H (7-17) mg/dL Creatinine 0.93 (0.52-1.04) mg/dL Est GFR (CKD-EPI)AfAm 64 (>60 ml/min/1.73 sqM) Est GFR (CKD-EPI)NonAf 55 (>60 ml/min/1.73 sqM) Glucose 171 H (74-99) mg/dL Calcium 8.4 (8.4-10.2) mg/dL Magnesium 1.8 (1.6-2.3) mg/dL Total Bilirubin 0.6 (0.2-1.3) mg/dL AST 62 H (14-36) U/L ALT 45 H (4-34) U/L Alkaline Phosphatase 185 H (38-126) U/L Troponin I (0.000-0.034) ng/mL NT-Pro-B Natriuret Pep pg/mL Total Protein 5.9 L (6.3-8.2) g/dL Albumin 3.2 L (3.5-5.0) g/dL TSH 2.580 (0.465-4.680) mIU/L Free T4 1.22 (0.78-2.19) ng/dL Free T3 pg/mL 2.1 L (2.8-5.3) pg/ml Coronavirus (PCR) (Not Detectd) 06/01/20 06/01/20 06/01/20 Range/Units 13:24 13:24 13:24 WBC (3.8-10.6) k/uL RBC (3.80-5.40) m/uL Hgb (11.4-16.0) gm/dL Hct (34.0-46.0) % MCV (80.0-100.0) fL MCH (25.0-35.0) pg MCHC (31.0-37.0) g/dL RDW (11.5-15.5) % Plt Count (150-450) k/uL MPV Neutrophils % % Lymphocytes % % Monocytes % % Eosinophils % % Basophils % % Neutrophils # (1.3-7.7) k/uL Lymphocytes # (1.0-4.8) k/uL Monocytes # (0-1.0) k/uL Eosinophils # (0-0.7) k/uL Basophils # (0-0.2) k/uL PT (9.0-12.0) sec INR (<1.2) APTT (22.0-30.0) sec Sodium (137-145) mmol/L Potassium (3.5-5.1) mmol/L Chloride (98-107) mmol/L Carbon Dioxide (22-30) mmol/L Anion Gap mmol/L BUN (7-17) mg/dL Creatinine (0.52-1.04) mg/dL Est GFR (CKD-EPI)AfAm (>60 ml/min/1.73 sqM) Est GFR (CKD-EPI)NonAf (>60 ml/min/1.73 sqM) Glucose (74-99) mg/dL Calcium (8.4-10.2) mg/dL Magnesium (1.6-2.3) mg/dL Total Bilirubin (0.2-1.3) mg/dL AST (14-36) U/L ALT (4-34) U/L Alkaline Phosphatase (38-126) U/L Troponin I 0.902 H* (0.000-0.034) ng/mL NT-Pro-B Natriuret Pep 7710 pg/mL Total Protein (6.3-8.2) g/dL Albumin (3.5-5.0) g/dL TSH (0.465-4.680) mIU/L Free T4 (0.78-2.19) ng/dL Free T3 pg/mL (2.8-5.3) pg/ml Coronavirus (PCR) Not Detected (Not Detectd) - Radiology Data Radiology results: image reviewed (Abdominal x-ray reveals no acute process view chest x-ray shows small pleural effusions. Cardiomegaly.) Critical Care Time Critical Care Time: Yes Total Critical Care Time: 33 Disposition Clinical Impression: Atrial fibrillation with RVR, CHF (congestive heart failure) Disposition: ADMITTED IP TO THIS HOSP Is patient prescribed a controlled substance at d/c from ED?: No Referrals: Georgiana Jay DO [Primary Care Provider] - 1-2 days Decision Time: 14:53
[2020-06-01 13:44] LABS: Basophils % (A) 1 %; Eosinophils # (A) 0.2 k/uL (0-0.7); Eosinophils % (A) 3 %; HCT 36.4 % (34.0-46.0); HGB 11.9 gm/dL (11.4-16.0); Lymphocytes # (A) 0.4 k/uL (1.0-4.8); Lymphocytes % (A) 5 %; MCH 30.1 pg (25.0-35.0); MCHC 32.6 g/dL (31.0-37.0); MCV 92.3 fL (80.0-100.0); Mean Platelet Volume 7.8; Monocytes # (A) 0.4 k/uL (0-1.0); Monocytes % (A) 6 %; Neutrophils % (A) 85 %; Platelet Count 252 k/uL (150-450); RBC 3.94 m/uL (3.80-5.40); RDW 13.4 % (11.5-15.5)
[2020-06-01 13:47] LABS: Albumin 3.2 g/dL (3.5-5.0); Calcium 8.4 mg/dL (8.4-10.2); Magnesium 1.8 mg/dL (1.6-2.3); Total Bilirubin 0.6 mg/dL (0.2-1.3); Total Protein 5.9 g/dL (6.3-8.2)
[2020-06-01] MEDS: DILTIAZEM 125 MG in SODIUM CHLORIDE 0.9% 100 ML IV SCH (13:51)
[2020-06-01 13:54] LABS: Partial Thromboplastin Time 24.8 sec (22.0-30.0); Prothrombin Time 10.3 sec (9.0-12.0)
[2020-06-01 14:04] LABS: T4, Free (Free Thyroxine) 1.22 ng/dL (0.78-2.19)
--- NOTE | 2020-06-01 14:07 | XR ---
EXAMINATION TYPE: XR chest 2V DATE OF EXAM: 06/01/2020 COMPARISON: Chest x-ray March 01, 2018 HISTORY: Dysrhythmia. TECHNIQUE: Frontal and lateral views of the chest are obtained. FINDINGS: Right-sided PICC line terminates in SVC. There is chronic emphysematous and parenchymal change with s mall to tiny bilateral pleural effusions. There is associated bibasilar atelectasis and/or infiltrate s. The cardiac silhouette size is more prominent and enlarged with atherosclerotic change in the aort ic knob redemonstrated. The osseous structures remain demineralized. Underlying scoliosis is presen t. IMPRESSION: Chronic emphysematous and parenchymal changes along with cardiomegaly. New small to tiny bilateral pleural effusions. Associated bibasilar atelectasis and/or infiltrate.
--- NOTE | 2020-06-01 14:07 | XR ---
EXAMINATION TYPE: XR abdomen 1V DATE OF EXAM: 06/01/2020 COMPARISON: 12/14/2009 HISTORY: Pain TECHNIQUE: Single supine KUB image of the abdomen is obtained FINDINGS: Small bowel demonstrates no evidence for dilatation or air fluid levels. Gas and fecal material is seen in non-distended colon. No convincing evidence for pneumoperitoneum. Right renal calculus is difficult to exclude. The lung bases are clear. The osseous structures are intact. IMPRESSION: 1. Overall nonobstructive bowel gas pattern.
[2020-06-01] MEDS ORDERED: HEPARIN SODIUM,PORCINE 5,000 UNIT/ML 1 ML VIAL IV ONE (14:54)
[2020-06-01] MEDS ORDERED: NITROGLYCERIN SL TABS 0.4 MG TAB SUBLINGUAL PRN (14:54)
[2020-06-01] MEDS ORDERED: ASPIRIN 81 MG PO STA (14:54)
[2020-06-01] MEDS ORDERED: HEPARIN SODIUM,PORCINE 5,000 UNIT/ML 1 ML VIAL IV PRN (14:54)
[2020-06-01] MEDS ORDERED: HEPARIN SOD,PORK IN 0.45% NACL 25,000 UNIT in 0.45% NACL 1 250ML.BAG IV SCH (15:00)
--- NOTE | 2020-06-01 15:54 | US ---
EXAMINATION TYPE: US abdomen complete DATE OF EXAM: 06/01/2020 COMPARISON: NONE CLINICAL HISTORY: Abdominal distention. GB removed. EXAM MEASUREMENTS: Liver Length: 16.1 cm CBD: 0.5 cm Spleen: 7.8 cm Right Kidney: 9.6 x 4.6 x 3.9 cm Left Kidney: 8.8 x 4.8 x 5.2 cm Pancreas: Tail obscured by overlying bowel gas Liver: left lobe cystic appearing lesion = 3.2 x 2.0 x 2.2 cm Gallbladder: Surgically absent Evidence for sonographic Kamara's sign: neg CBD: wnl Spleen: wnl Right Kidney: lower pole echogenic focus= 1.2 x 1.0 cm Left Kidney: complex cystic medial/mid lesion = 4.5 x 4.8 x 3.8 cm Upper IVC: wnl Abd Aorta: atherosclerotic changes seen, no AAA visualized The liver is homogenous. The intrahepatic portion of the IVC and proximal abdominal aorta are within normal limits. Common bile duct is unremarkable. The visualized portions of the pancreas are homog enous. The spleen is unremarkable. Kidneys are symmetric and free of hydronephrosis. IMPRESSION: 1. Complex renal lesion left kidney. Further evaluation with CT is recommended. 2. Cyst left hepatic lobe. 3. Nonobstructing calculus right kidney.
[2020-06-01] MEDS ORDERED: IPRATROPIUM-ALBUTEROL 3 ML NEB INHALATION PRN (18:29)
[2020-06-01] MEDS ORDERED: ACETAMINOPHEN TAB 500 MG TAB PO PRN (18:30)
[2020-06-01] MEDS ORDERED: HYDROcodone/APAP 5-325MG 1 EACH TAB PO PRN (18:30)
--- NOTE | 2020-06-01 19:15 | HP ---
HISTORY AND PHYSICAL DATE OF SERVICE: 06/01/2020. CHIEF COMPLAINT: Shortness of breath and irregular heartbeat. HISTORY OF PRESENT ILLNESS: 89-year-old woman with a past medical history of multiple medical problems including COPD, pneumonia, palpitations, history of bowel surgery, history of cholecystectomy, had a recent history of osteomyelitis of the left middle finger. The patient is being followed by Dr. Gaffney in the outpatient setting. The patient recently had features of osteomyelitis and had incision and drainage with irrigation in the office and subsequently started on broad spectrum IV antibiotics. The culture showed Pseudomonas aeruginosa and urine culture showed Morganella morganii last year. The patient is on cefepime on a daily basis and today the patient was having increasing shortness of breath and some palpitations. The patient came to [facility] and admitted for further evaluation and treatment. Mild cough with some sputum was also noted. In the ER, the patient was found to have atrial fibrillation with fast ventricular rate. The patient was started on Cardizem drip, but however the troponins were also elevated 0.90 and 1.050, indicating acute ivn-BH-[id number]-elevation myocardial infarction, and there was no history of chest pain. IV heparin was also initiated. There is no history of fever, rigors or chills. No history of headache, loss of consciousness, seizures at this time. A chest x-ray done in the ER which I reviewed personally showed bilateral interstitial lead lesions and increased bronchovascular markings as well as some blunting of the costophrenic angles. PAST MEDICAL HISTORY: History of COPD, history of pneumonia, history of nephrolithiasis. History of bowel resection and cholecystectomy. MEDICATIONS: Medications prior to admission include cefepime, Symbicort, albuterol p.r.n. ALLERGIES: SULFA. FAMILY HISTORY: No history of cancer in the family. SOCIAL HISTORY: Previous history of smoking. No history of current smoking or alcohol intake. REVIEW OF SYSTEMS: ENT: Diminished vision. Diminished hearing. CARDIOVASCULAR system as mentioned earlier. RESPIRATORY: As mentioned earlier. GI no nausea or vomiting. no dysuria. NERVOUS SYSTEM: No numbness, weakness. ALLERGY/IMMUNOLOGY: No asthma or hayfever. MUSCULOSKELETAL as mentioned earlier. HEMATOLOGY/ONCOLOGY: No history of anemia. ENDOCRINE: No history of diabetes or hypothyroidism. CONSTITUTIONAL: As mentioned earlier. DERMATOLOGY negative. RHEUMATOLOGY: Negative. PSYCHIATRIC: Negative. PHYSICAL EXAMINATION: Alert and oriented x3. Pulse 87. The pulse on admission was 142, irregular, respiration 18, temperature normal, pulse ox 98% on 2 L. Blood pressure is 131/104. HEENT: Conjunctivae normal. Oral mucosa moist. NECK is no jugular venous distention. No carotid bruit. No lymph node enlargement. CARDIOVASCULAR: S1, S2 irregular. Tachycardic. RESPIRATIONS: Breath sounds diminished in the bases. A few scattered rhonchi and crackles. ABDOMEN: Soft, nontender. No mass palpable. LEGS: No edema. No swelling. NERVOUS SYSTEM: Higher functions as mentioned earlier. Moves all 4 limbs. No focal motor or sensory deficits. LYMPHATICS: No lymph nodes palpable in the neck, axillae or groin. SKIN: No ulcer, no rashes and no bleeding. JOINTS: No active deforming arthropathy. LABS: CBC within normal limits. Sodium 133, potassium 4 and glucose 171. AST 62, ALT is 45. Troponin 0.0902 and 1.050. ASSESSMENT: 1. Atrial fibrillation with fast ventricular rate. 2. Troponin elevated up to 1.050 possible acute myf-JL-riixcvi-elevation myocardial infarction. 3. Shortness of breath, possible chronic obstructive pulmonary disease, acute exacerbation, rule out congestive heart failure. 4. Elevated AST/ALT. 5. Hyponatremia. 6. History of chronic obstructive pulmonary disease. 7. History of nephrolithiasis. 8. History of colectomy. 9. History of cholecystectomy. 10.Mild protein calorie malnutrition with body mass index of 17.8. RECOMMENDATIONS AND DISCUSSION: This 89-year-old woman who presented with multiple complex medical issues, we will monitor the patient closely, continue the current medications, management and symptomatic treatment. The patient is started on Cardizem and heparin drips. Closely monitor. Cardiology consultation. I would also recommend empiric antibiotics and as well as bronchodilators for COPD exacerbation. We will follow the patient closely. Repeat labs will be ordered. Prognosis guarded because of multiple complex medical issues. Further recommendations to follow. A copy of dictation being forwarded to Dr. Gaffney who is the primary physician. MMODL / IJN: [id number] /
[2020-06-01 19:27] LABS: Appearance,Urine Cloudy (Clear); Bacteria,Urine Rare /hpf; Bilirubin,Urine Negative (Negative); Blood,Urine Large (Negative); Color,Urine Yellow; Glucose,Urine (UA) Negative (Negative); Ketones,Urine Trace (Negative); Leukocyte Esterase,Urine Trace (Negative); Mucus,Urine Rare /hpf; Nitrite,Urine Negative (Negative); Protein,Urine 2+ (Negative); RBC,Urine >182 /hpf (0-5); Specific Gravity,Urine 1.026 (1.001-1.035); Squamous Epithelial Cell,Urine 3 /hpf (0-4); Urobilinogen,Urine <2.0 mg/dL (<2.0); WBC,Urine 14 /hpf (0-5)
[2020-06-01] MEDS: ALPRAZolam 0.25 MG TAB PO PRN (20:41)
[2020-06-01] MEDS: IPRATROPIUM-ALBUTEROL 3 ML NEB INHALATION SCH (20:46)
[2020-06-01] MEDS: SYMBICORT 160-4.5 MCG INHALER INHALATION SCH (20:46)
[2020-06-02 04:19] LABS: Basophils % (A) 0 %; Eosinophils # (A) 0.4 k/uL (0-0.7); Eosinophils % (A) 5 %; HCT 33.1 % (34.0-46.0); HGB 11.1 gm/dL (11.4-16.0); Lymphocytes # (A) 0.4 k/uL (1.0-4.8); Lymphocytes % (A) 5 %; MCH 30.8 pg (25.0-35.0); MCHC 33.4 g/dL (31.0-37.0); Mean Platelet Volume 8.7; Monocytes # (A) 0.6 k/uL (0-1.0); Monocytes % (A) 7 %; Neutrophils # (A) 7.4 k/uL (1.3-7.7); Neutrophils % (A) 83 %; Platelet Count 235 k/uL (150-450); RDW 13.3 % (11.5-15.5)
[2020-06-02 04:39] LABS: Calcium 8.1 mg/dL (8.4-10.2); Potassium 4.3 mmol/L (3.5-5.1)
[2020-06-02] MEDS: DILTIAZEM 125 MG in SODIUM CHLORIDE 0.9% 100 ML IV SCH (05:02)
[2020-06-02] MEDS: SYMBICORT 160-4.5 MCG INHALER INHALATION SCH ×2 (08:07→19:55)
[2020-06-02] MEDS: IPRATROPIUM-ALBUTEROL 3 ML NEB INHALATION SCH ×4 (08:07→19:55)
[2020-06-02] MEDS ORDERED: APIXABAN 2.5 MG TABLET PO SCH (09:00)
[2020-06-02] MEDS ORDERED: ASPIRIN 325 MG TAB PO SCH (09:00)
[2020-06-02] MEDS ORDERED: CEFEPIME 2 GM in SODIUM CHLORIDE 0.9% 100 ML IVPB SCH (09:00)
[2020-06-02] MEDS ORDERED: CEFEPIME 2 GM VIAL IVPB SCH (09:00)
[2020-06-02] MEDS: APIXABAN 2.5 MG TABLET PO SCH ×2 (10:44→20:23)
[2020-06-02] MEDS: ASPIRIN 81 MG PO SCH (10:45)
[2020-06-02] MEDS: METOPROLOL TARTRATE 25 MG TAB PO SCH ×2 (10:45→20:22)
[2020-06-02] MEDS: FUROSEMIDE 10 MG/ML 4 ML VIAL IV SCH (10:53)
[2020-06-02 10:59] VITALS: BMI 18.2
--- NOTE | 2020-06-02 11:09 | P.CRDCN ---
History of Present Illness History of present illness: HISTORY OF PRESENTING ILLNESS This is a pleasant 89-year-old female past medical history significant for who appeared ED, she quit smoking 2 weeks ago, colon resection and nonrheum atic mitral regurgitation. She previously has followed in the office with Dr. Esquivel. We have been asked to see in consultation for heart failure and A. fib. She has been following in the wound care center and has a home visiting nurse secondary to osteomyelitis of her left digit. She is currently getting outpatient antibiotics. She states the nurse came yesterday and noted that she was having some increased shortness of breath, hypertension and tachycardia. The patient states she noticed her heart beating harder over the previous 3-4 days and she has had some difficulty sleeping and inability to lay flat for the past 2 days. She denies any symptoms of chest pain or dizziness. Most recent echocardiogram obtained in the office in 2018 revealed preserved LV systolic function with ejection fraction of 60-65%, mildly enlarged right ventricle, mild aortic sclerosis with mild aortic regurgitation, mild to moderately thickened mitral valve with moderate mitral regurgitation and a small pericardial effusion near the right ventricle. DIAGNOSTICS EKG reveals atrial fibrillation heart rate of [address] or T wave abnormalities noted. Telemetry tracings indicate atrial fibrillation with controlled ventricular rates. Chest xray of the somatic and parenchymal changes with tiny bilateral pleural effusions. Laboratory reviewed, WBC 9, hemoglobin 11.1, platelets 235, sodium 132, potassium 4.3, creatinine 0.82, magnesium 1.8, troponin 0.902, 1.05, 0.9 199, proBNP 9380, LDL 66, HDL 38 and TSH 2.58. She takes no daily cardiac medications. REVIEW OF SYSTEMS At the time of my exam: CONSTITUTIONAL: Denies fever or chills. CARDIOVASCULAR: Complains of shortness of breath. Denies chest pain, orthopnea, PND or palpitations. RESPIRATORY: Denies cough. GASTROINTESTINAL: Denies abdominal pain, diarrhea, constipation, nausea or vomiting. MUSCULOSKELETAL: Denies myalgias. NEUROLOGIC: Denies numbness, tingling, headacbe or weakness. ENDOCRINE: Denies fatigue, weight change, polydipsia or polyurina. GENITOURINARY: Denies burning, hematuria or urgency with micturation. HEMATOLOGIC: Denies history of anemia or bleeding. PHYSICAL EXAMINATION Blood pressure 113/56 heart rate 94 afebrile and maintaining oxygen saturation on nasal cannula CONSTITUTIONAL: No apparent distress. Mildly tachyneic with conversation. HEENT: Head is normocephalic. Pupils are equal, round. Sclerae anicteric. Mucous membranes of the mouth are moist. No JVD. No carotid bruit. CHEST EXAMINATION: Bibsailar rales. No wheezes or rhonchi. No chest wall tenderness is noted on palpation or with deep breathing. HEART EXAMINATION: Irregular rate and rhythm. S1, S2 heard. Systolic ejection murmur at the left sternal border, no gallops or rub. Distant heart sounds. ABDOMEN: Soft, non-tender. Positive bowel sounds. EXTREMITIES: 2+ peripheral pulses, no lower extremity edema and no calf tenderne ss. NEUROLOGIC EXAMINATION: Patient is awake, alert and oriented x3. ASSESSMENT New onset paroxysmal atrial fibrillation with RVR, improved rates but still in afib Acute diastolic heart failure secondary to new onset afib Troponin elevation, secondary to Type II [place] due to afib with RVR COPD Mitral regurgitation Chronic nicotine dependence PLAN Discontinue cardizem infusion and initiate low dose beta blockers, lopressor 25 mg BID. We will increase tomorrow as tolerated. Initiate eliquis 2.5 mg BID and discontinue heparin infusion. We will ask the [employer] to evaluate the cost for the patient. Obtain echocardiogram tomorrow when her heart rates are better controlled for more accurate results. Initiate lasix 40mg IV daily. Follow renal function and electrolytes in the morning. Document accurate intake and output along with daily weights. Further recommendations to follow based on clinical course. Thank you kindly for this consultation. Nurse Practitioner note has been reviewed, I agree with a documented findings and plan of care. Patient was seen and examined. Past Medical History Past Medical History: COPD, Pneumonia Additional Past Medical History / Comment(s): palpatations,murmur, past kidney stones, past benign colon poly, "12 inches of colon removed" History of Any Multi-Drug Resistant Organisms: None Reported Past Surgical History: Bowel Resection, Cholecystectomy Additional Past Surgical History / Comment(s): "i had a colon poly imbedded in lining of colon-in order to get it out they had to take section of colon out", cataracts removed has lens implants Past Anesthesia/Blood Transfusion Reactions: No Reported Reaction Additional Past Anesthesia/Blood Transfusion Reaction / Comment(s): has never recieved any blood transfusions Past Psychological History: No Psychological Hx Reported Additional Psychological History / Comment(s): pt lives alone(lost her in october 2017). pt is independant,drives. family lives nearby. has a nebulizer. Smoking Status: Current every day smoker Past Alcohol Use History: None Reported Additional Past Alcohol Use History / Comment(s): started smoking at age 18,quit 1961 smoked less than 1 ppd Past Drug Use History: None Reported - Past Family History Mother Family Medical History: Cancer Father Family Medical History: Congestive Heart Failure (CHF) Medications and Allergies Home Medications Medication Instructions Recorded Confirmed Type Budesonide-Formot 160-4.5 Mcg 2 puff INHALATION RT-BID 03/01/18 06/01/20 History [Symbicort 160-4.5 Mcg Inhaler] Albuterol Nebulized [Ventolin 2.5 mg INHALATION RT-BID 05/15/20 06/01/20 History Nebulized] Cefepime [Maxipime] 2 gm IVPB DAILY 06/01/20 06/01/20 History Apixaban [Eliquis] 2.5 mg PO BID #60 tablet 06/02/20 Rx Allergies Allergy/AdvReac Type Severity Reaction Status Date / Time Sulfa (Sulfonamide Allergy Unknown Verified 06/01/20 14:10 Antibiotics) Childhood Physical Exam Vitals: Vital Signs Temp Pulse Pulse Resp BP BP Pulse Ox 06/02/20 04:00 98.9 F 83 17 118/56 95 06/02/20 01:34 86 19 06/02/20 00:00 98.7 F 86 19 92/49 97 06/01/20 20:47 94 06/01/20 20:00 78 20 110/61 06/01/20 16:11 98.6 F 92 20 98 06/01/20 15:30 98.3 F 87 16 113/69 99 06/01/20 15:00 107 H 06/01/20 14:40 108 H 06/01/20 14:19 26 H 06/01/20 14:00 122 H 20 126/87 97 06/01/20 13:46 142 H 18 131/104 98 06/01/20 12:35 98.3 F 145 H 19 128/76 93 L Intake and Output 06/01/20 06/02/20 06/02/20 22:59 06:59 14:59 Intake Total 427.219 174.595 Output Total 200 200 Balance 227.219 174.595 -200 Intake: Intake, IV Titration 37.219 174.595 Amount Diltiazem 125 mg In 121.583 Sodium Chloride 0.9% 100 ml @ 5 MG/HR 5 mls/hr IV .Q24H [facility] Rx#:[id number] Heparin Sod,Pork in 0.45% 37.219 53.012 NaCl 25,000 unit In 0.45 % NaCl 1 250ml.bag @ 12 UNITS/KG/HR 5.987 mls/hr IV .Q24H [facility] Rx#: [id number] Oral 390 Output: Urine 200 200 Other: Voiding Method Toilet Toilet # Voids 1 Weight 49.895 kg 51.3 kg Results 06/02/20 04:10 06/02/20 04:10 Cardiac Enzymes 06/01/20 06/01/20 06/01/20 Range/Units 13:24 13:24 16:24 AST 62 H (14-36) U/L Troponin I 0.902 H* 1.050 H* (0.000-0.034) ng/mL 06/01/20 Range/Units 19:28 AST (14-36) U/L Troponin I 0.989 H* (0.000-0.034) ng/mL Coagulation 06/01/20 06/01/20 06/02/20 Range/Units 13:24 19:28 04:10 PT 10.3 (9.0-12.0) sec APTT 24.8 31.1 H 30.7 H (22.0-30.0) sec Lipids 06/02/20 Range/Units 04:10 Triglycerides 77 (<150) mg/dL Cholesterol 119 (<200) mg/dL HDL Cholesterol 38 L (40-60) mg/dL CBC 06/01/20 06/02/20 Range/Units 13:24 04:10 WBC 7.0 9.0 (3.8-10.6) k/uL RBC 3.94 3.60 L (3.80-5.40) m/uL Hgb 11.9 11.1 L (11.4-16.0) gm/dL Hct 36.4 33.1 L (34.0-46.0) % Plt Count 252 235 (150-450) k/uL Comprehensive Metabolic Panel 06/01/20 06/02/20 Range/Units 13:24 04:10 Sodium 133 L 132 L (137-145) mmol/L Potassium 4.0 4.3 (3.5-5.1) mmol/L Chloride 101 101 (98-107) mmol/L Carbon Dioxide 24 26 (22-30) mmol/L BUN 21 H 21 H (7-17) mg/dL Creatinine 0.93 0.82 (0.52-1.04) mg/dL Glucose 171 H 116 H (74-99) mg/dL Calcium 8.4 8.1 L (8.4-10.2) mg/dL AST 62 H (14-36) U/L ALT 45 H (4-34) U/L Alkaline Phosphatase 185 H (38-126) U/L Total Protein 5.9 L (6.3-8.2) g/dL Albumin 3.2 L (3.5-5.0) g/dL Current Medications Generic Name Dose Route Start Last Admin Trade Name Freq PRN Reason Stop Dose Admin Acetaminophen 500 mg 06/01/20 18:30 Acetaminophen Tab 500 Mg Tab PO Q6HR PRN Fever and/ or Pain Hydrocodone Bitart/Acetaminophen 1 each 06/01/20 18:30 Hydrocodone/Apap 5-325mg 1 Each Tab PO Q6HR PRN Pain Albuterol/Ipratropium 3 ml 06/01/20 20:00 06/01/20 20:46 Ipratropium-Albuterol 3 Ml Neb INHALATION 3 ml RT-QID [facility] Administration Albuterol/Ipratropium 3 ml 06/01/20 18:29 Ipratropium-Albuterol 3 Ml Neb INHALATION RT-QID PRN Shortness Of Breath Or Wheezing Alprazolam 0.25 mg 06/01/20 18:30 06/01/20 20:41 Alprazolam 0.25 Mg Tab PO 0.25 mg TID PRN Administration Anxiety Aspirin 325 mg 06/02/20 09:00 Aspirin 325 Mg Tab PO DAILY [facility] Budesonide/Formoterol Fumarate 2 puff 06/01/20 20:00 06/01/20 20:46 Symbicort 160-4.5 Mcg Inhaler INHALATION 2 puff RT-BID [facility] Administration Heparin Sodium (Porcine) 0 unit 06/01/20 14:54 Heparin Sodium,Porcine 5,000 Unit/Ml 1 Ml Vial IV Q6HR PRN Low PTT Protocol Heparin Sodium/Sodium Chloride 250 mls @ 5.987 mls/hr 06/01/20 15:00 06/02/20 04:58 25,000 unit/ Sodium Chloride IV 18 units/kg/hr .Q24H [facility] 8.981 mls/hr Titration Protocol 12 UNITS/KG/HR Cefepime HCl 2 gm/ Sodium 100 mls @ 25 mls/hr 06/02/20 09:00 Chloride IVPB DAILY [facility] Metoprolol Tartrate 25 mg 06/02/20 09:00 Metoprolol Tartrate 25 Mg Tab PO BID [facility] Multivitamins 1 each 06/02/20 12:00 Multivitamins, Thera 1 Each Tab PO DAILY@1200 [facility] Nitroglycerin 0.4 mg 06/01/20 14:54 Nitroglycerin Sl Tabs 0.4 Mg Tab SUBLINGUAL Q5M PRN Chest Pain Sodium Chloride 10 ml 06/01/20 21:00 06/01/20 20:41 Sodium Chloride 0.9% Flush 10 Ml Syringe IV 10 ml BID [facility] Administration Intake and Output 06/01/20 06/02/20 06/02/20 22:59 06:59 14:59 Intake Total 427.219 174.595 Output Total 200 200 Balance 227.219 174.595 -200 Intake: Intake, IV Titration 37.219 174.595 Amount Diltiazem 125 mg In 121.583 Sodium Chloride 0.9% 100 ml @ 5 MG/HR 5 mls/hr IV .Q24H [facility] Rx#:[id number] Heparin Sod,Pork in 0.45% 37.219 53.012 NaCl 25,000 unit In 0.45 % NaCl 1 250ml.bag @ 12 UNITS/KG/HR 5.987 mls/hr IV .Q24H [facility] Rx#: [id number] Oral 390 Output: Urine 200 200 Other: Voiding Method Toilet Toilet # Voids 1 Weight 49.895 kg 51.3 kg 06/02/20 04:10 06/02/20 04:10
--- NOTE | 2020-06-02 11:43 | P.PN ---
Progress Note - Text Elderly female presenting with shortness of breath Found to be in atrial fibrillation with RVR Complaining of orthopnea Abnormal troponins No chest discomfort No ST segment abnormalities on ECG History of nonrheumatic mitral regurgitation Osteomyelitis of her left digit/finger Labs interpreted Hemoglobin 11.1 Sodium 132 potassium 4.3, BUN 21 and creatinine 0.8 TSH 2.58 Plan Stop IV Cardizem Initiate Lopressor 25 mg twice daily Will increase tomorrow Initiate ELIQUIS 2.5 mg twice daily Echocardiogram once heart rates are better controlled Lasix 40 mg IV daily and follow renal function Follow-up with Dr. Hickman as an outpatient
[2020-06-02] MEDS: MULTIVITAMINS, THERA 1 EACH TAB PO SCH (11:52)
--- NOTE | 2020-06-02 14:34 | P.CNPUL ---
History of Present Illness Consult date: 06/02/20 Requesting physician: Hossein Braun Reason for consult: dyspnea, hypoxemia Chief complaint: Shortness of breath, atrial fibrillation. History of present illness: 89-year-old female, who presents to the emergency department on 06/01/2020, at 1229, complaining of palpitations, rapid heartbeat, fluttering in the chest, and shortness of breath. The patient states that she's had these symptoms over the last couple days prior to admission and they have been progressing. The patient apparently does have a history of atrial fibrillation in the past. She states that she's had this problem in the past. She does have occasional mild cough. She denies any fever or chills. She is not coughing up any phlegm. There is no chest pain or pressure. She denies any nausea, vomiting, diarrhea. She denies any abdominal pain. The patient apparently was in the hospital recently with a bone infection to her left middle finger. She was on IV antibiotics here in the hospital and then IV antibiotics at home. Apparently they switched antibiotics from twice a day to once a day because of renal insufficiency. Her past medical history is positive for pneumonia, COPD, atrial fibrillation, kidney stones, and colonic polyps. She apparently also has a history of recent diagnosis of osteomyelitis of the left middle finger. Home medications included albuterol updrafts, Symbicort, and cefepime. ALLERGIES are sulfa antibiotics. White count is 9.0, hemoglobin 11.1, hematocrit 33.1, and platelet count is 235,000. PTT is 30.7. Sodium 132, potassium 4.3, chlorides 101, CO2 26, anion gap 5, BUN was 21, and creatinine 0.82. Review of Systems REVIEW OF SYSTEMS: CONSTITUTIONAL: [Negative.] NEUROLOGIC: [ Negative.] HEENT: [ Negative.] CARDIAC: Rapid heartbeat, palpitations, fluttering in the chest. PULMONARY: Shortness of breath, and dry cough. GI: [Negative.] : [Negative.] RHEUMATOLOGIC: [ Negative.] IMMUNOLOGIC: [ Negative.] ENDOCRINE: [Negative. ] DERMATOLOGIC: [Negative.] Past Medical History Past Medical History: COPD, Pneumonia Additional Past Medical History / Comment(s): palpatations,murmur, past kidney stones, past benign colon poly, "12 inches of colon removed" History of Any Multi-Drug Resistant Organisms: None Reported Past Surgical History: Bowel Resection, Cholecystectomy Additional Past Surgical History / Comment(s): "i had a colon poly imbedded in lining of colon-in order to get it out they had to take section of colon out", cataracts removed has lens implants Past Anesthesia/Blood Transfusion Reactions: No Reported Reaction Additional Past Anesthesia/Blood Transfusion Reaction / Comment(s): has never recieved any blood transfusions Past Psychological History: No Psychological Hx Reported Additional Psychological History / Comment(s): pt lives alone(lost her in october 2017). pt is independant,drives. family lives nearby. has a nebulizer. Smoking Status: Current every day smoker Past Alcohol Use History: None Reported Additional Past Alcohol Use History / Comment(s): started smoking at age 18,quit 1961 smoked less than 1 ppd Past Drug Use History: None Reported - Past Family History Mother Family Medical History: Cancer Father Family Medical History: Congestive Heart Failure (CHF) Medications and Allergies Home Medications Medication Instructions Recorded Confirmed Type Budesonide-Formot 160-4.5 Mcg 2 puff INHALATION RT-BID 03/01/18 06/01/20 History [Symbicort 160-4.5 Mcg Inhaler] Albuterol Nebulized [Ventolin 2.5 mg INHALATION RT-BID 05/15/20 06/01/20 History Nebulized] Cefepime [Maxipime] 2 gm IVPB DAILY 06/01/20 06/01/20 History Apixaban [Eliquis] 2.5 mg PO BID #60 tablet 06/02/20 Rx Allergies Allergy/AdvReac Type Severity Reaction Status Date / Time Sulfa (Sulfonamide Allergy Unknown Verified 06/01/20 14:10 Antibiotics) Childhood Physical Exam Osteopathic Statement: *. No significant issues noted on an osteopathic structural exam other than those noted in the History and Physical/Consult. Vitals: Vital Signs Temp Pulse Pulse Resp BP BP Pulse Ox 06/02/20 12:00 97.9 F 103 H 18 109/61 92 L 06/02/20 11:42 94 06/02/20 11:30 92 06/02/20 08:20 94 06/02/20 08:15 95 18 06/02/20 08:07 94 06/02/20 08:00 97.5 F L 95 18 113/56 99 02/02/21 04:00 98.9 F 83 17 118/56 95 06/02/20 01:34 86 19 06/02/20 00:00 98.7 F 86 19 92/49 97 06/01/20 20:47 94 06/01/20 20:00 78 20 110/61 06/01/20 16:11 98.6 F 92 20 98 06/01/20 15:30 98.3 F 87 16 113/69 99 06/01/20 15:00 107 H 06/01/20 14:40 108 H Intake and Output 06/01/20 06/02/20 06/02/20 22:59 06:59 14:59 Intake Total 427.219 174.595 480 Output Total 200 1000 Balance 227.219 174.595 -520 Intake: Intake, IV Titration 37.219 174.595 Amount Diltiazem 125 mg In 121.583 Sodium Chloride 0.9% 100 ml @ 5 MG/HR 5 mls/hr IV .Q24H [facility] Rx#:[id number] Heparin Sod,Pork in 0.45% 37.219 53.012 NaCl 25,000 unit In 0.45 % NaCl 1 250ml.bag @ 12 UNITS/KG/HR 5.987 mls/hr IV .Q24H [facility] Rx#: [id number] Oral 390 480 Output: Urine 200 1000 Other: Voiding Method Toilet Toilet Toilet # Voids 1 1 Weight 49.895 kg 51.3 kg 51.3 kg No acute distress, oriented 3. Nasal O2 in place at 2 L. No conversational dyspnea, use of accessory muscles, or audible wheezing. HEENT examination is grossly unremarkable. Mucous membranes are moist. No oral lesions. Neck supple. Full range of motion. No adenopathy thyromegaly or neck vein distention. Cardiovascular examination reveals irregular rhythm and rate. S1-S2 normal. No S3 or S4. No discernible murmur noted. Heart sounds are distant and heart rate is about 89 bpm. Lungs reveal mostly clear breath sounds. Her sounds are equal bilaterally. A few scattered rhonchi are appreciated. Abdomen soft bowel sounds are heard. No masses or tenderness. Extremities are intact. No cyanosis clubbing or edema. Skin is without rash or lesion. Neurologic examination is brief but nonfocal. Results - Laboratory Findings CBC and BMP: 06/02/20 04:10 06/02/20 04:10 PT/INR, D-dimer PT 10.3 sec (9.0-12.0) 06/01/20 13:24 INR 1.0 (<1.2) 06/01/20 13:24 Abnormal lab findings: Abnormal Labs 06/01/20 06/01/20 06/01/20 13:24 13:24 13:24 RBC Hgb Hct Lymphocytes # 0.4 L APTT Sodium 133 L BUN 21 H Glucose 171 H Calcium AST 62 H ALT 45 H Alkaline Phosphatase 185 H Troponin I 0.902 H* Total Protein 5.9 L Albumin 3.2 L HDL Cholesterol Free T3 pg/mL 2.1 L Urine Appearance Urine Protein Urine Ketones Urine Blood Ur Leukocyte Esterase Urine RBC Urine WBC Urine Bacteria Urine Mucus 06/01/20 06/01/20 06/01/20 16:24 18:50 19:28 RBC Hgb Hct Lymphocytes # APTT Sodium BUN Glucose Calcium AST ALT Alkaline Phosphatase Troponin I 1.050 H* 0.989 H* Total Protein Albumin HDL Cholesterol Free T3 pg/mL Urine Appearance Cloudy H Urine Protein 2+ H Urine Ketones Trace H Urine Blood Large H Ur Leukocyte Esterase Trace H Urine RBC >182 H Urine WBC 14 H Urine Bacteria Rare H Urine Mucus Rare H 06/01/20 06/02/20 06/02/20 19:28 04:10 04:10 RBC 3.60 L Hgb 11.1 L Hct 33.1 L Lymphocytes # 0.4 L APTT 31.1 H 30.7 H Sodium BUN Glucose Calcium AST ALT Alkaline Phosphatase Troponin I Total Protein Albumin HDL Cholesterol Free T3 pg/mL Urine Appearance Urine Protein Urine Ketones Urine Blood Ur Leukocyte Esterase Urine RBC Urine WBC Urine Bacteria Urine Mucus 06/02/20 04:10 RBC Hgb Hct Lymphocytes # APTT Sodium 132 L BUN 21 H Glucose 116 H Calcium 8.1 L AST ALT Alkaline Phosphatase Troponin I Total Protein Albumin HDL Cholesterol 38 L Free T3 pg/mL Urine Appearance Urine Protein Urine Ketones Urine Blood Ur Leukocyte Esterase Urine RBC Urine WBC Urine Bacteria Urine Mucus - Diagnostic Findings Chest x-ray: image reviewed Assessment and Plan Assessment: Shortness of breath, likely related to underlying atrial fibrillation with RVR. There may also be a component of COPD. Atrial fibrillation with RVR. History of COPD secondary to previous tobacco use. Osteomyelitis of the left middle finger, currently on home IV antibiotics. Elevated troponins, possibly secondary to atrial fibrillation with RVR. Mild fluid overload with small bilateral pleural effusions. Plan: Plan dated 06/02/2020. Currently, the patient appears to be doing relatively well. The patient continues on cefepime for her osteomyelitis. In addition, she is on DuoNeb 4 times a day and when necessary as well as Symbicort, 160/4.5, 2 puffs twice a day. It does not appear that her COPD is particularly active at this time and most of her shortness of breath small degree of congestive heart failure/fluid overload. The patient's medications are appropriate. She is now on a factor X a inhibitor for her atrial fibrillation. She remains in atrial fibrillation with a heart rate about 90-95 bpm. We will continue to follow. Prognosis is guarded. Time with Patient: Greater than 30
--- NOTE | 2020-06-02 15:44 | PN ---
PROGRESS NOTE DATE OF SERVICE: 06/02/2020 This 89-year-old woman who was admitted with shortness of breath and irregular heartbeat is being closely monitored at this time. The patient is on Cardizem drip. The troponins elevated up to 1.050 and Cardiology seen the patient and recommended a 2D echo with Doppler. Basically, medical treatment was recommended. Pulmonary has also seen the patient. A type 2 myocardial infarction is also considered as a possibility. Dr. Zelaya has recommended to continue the current treatment. PAST MEDICAL HISTORY: Reviewed. REVIEW OF SYSTEMS: CARDIOVASCULAR SYSTEM: As mentioned earlier. RESPIRATORY SYSTEM: As mentioned earlier. GI: As mentioned earlier. : No dysuria. NERVOUS SYSTEM: As mentioned earlier. CURRENT MEDICATIONS: Current medications are reviewed and include Tylenol, Ebro, DuoNeb, Xanax, Eliquis, aspirin, Lopressor, multivitamins. Doses are reviewed. PHYSICAL EXAMINATION: The patient is alert and oriented x3. Pulse is 103, irregular. Blood pressure 109/61, respiration 18, temperature 97.9, pulse ox 92% on 2 L. HEENT: Conjunctivae normal. NECK: No jugular venous distention. CARDIOVASCULAR: S1, S2 irregular. RESPIRATORY: Breath sounds diminished at the bases. ABDOMEN: Soft, nontender. NERVOUS SYSTEM: No focal deficits. LABS: Hemoglobin 11.1 APTT is 30.7. Sodium is 132. Troponins are noted. UA shows mostly RBCs. ASSESSMENT: 1. Atrial fibrillation with fast ventricular rate. 2. Troponin elevated at 1.050, possible acute cfl-[id number]-[id number]-elevation myocardial infarction type 2. 3. Shortness of breath, possible chronic obstructive pulmonary disease acute exacerbation. 4. Elevated AST, ALT. 5. Mild hematuria. 6. Hyponatremia. 7. History of chronic obstructive pulmonary disease. 8. History of nephrolithiasis. 9. History of colectomy. 10.History of cholecystectomy. 11.Mild protein calorie malnutrition with body mass index of 17.8. 12.FULL CODE. RECOMMENDATIONS AND DISCUSSION: This 89-year-old woman who presented with multiple complex medical issues, we will monitor the patient closely. Continue the current medications and continue symptomatic treatment. Otherwise continue the antiplatelet and Eliquis was initiated by Cardiology. Will continue to monitor. Repeat labs in the morning. Two-D echo has been ordered. Medical treatment. Prognosis extremely guarded because of multiple complex medical issues. Further recommendations to follow. MMODL / IJN: [id number] /
[2020-06-02] MEDS: CEFEPIME 2 GM in SODIUM CHLORIDE 0.9% 100 ML IVPB SCH (20:23)
[2020-06-02] MEDS: ALPRAZolam 0.25 MG TAB PO PRN (20:23)
[2020-06-02] MEDS ORDERED: METOPROLOL TARTRATE 25 MG TAB PO STA (20:48)
[2020-06-03] MEDS: METOPROLOL TARTRATE 25 MG TAB PO SCH (03:32)
[2020-06-03 07:36] LABS: Basophils % (A) 0 %; Eosinophils # (A) 0.2 k/uL (0-0.7); Eosinophils % (A) 2 %; HCT 37.1 % (34.0-46.0); HGB 11.8 gm/dL (11.4-16.0); Lymphocytes # (A) 0.4 k/uL (1.0-4.8); Lymphocytes % (A) 4 %; MCH 29.7 pg (25.0-35.0); MCHC 31.8 g/dL (31.0-37.0); MCV 93.4 fL (80.0-100.0); Mean Platelet Volume 7.8; Monocytes # (A) 0.6 k/uL (0-1.0); Monocytes % (A) 6 %; Neutrophils # (A) 8.8 k/uL (1.3-7.7); Neutrophils % (A) 87 %; Platelet Count 304 k/uL (150-450); RBC 3.97 m/uL (3.80-5.40); RDW 13.7 % (11.5-15.5); WBC 10.1 k/uL (3.8-10.6)
[2020-06-03 07:50] LABS: Calcium 8.4 mg/dL (8.4-10.2); Potassium 4.7 mmol/L (3.5-5.1)
[2020-06-03] MEDS: IPRATROPIUM-ALBUTEROL 3 ML NEB INHALATION SCH ×4 (09:07→20:23)
[2020-06-03] MEDS: SYMBICORT 160-4.5 MCG INHALER INHALATION SCH ×2 (09:07→20:24)
[2020-06-03] MEDS: APIXABAN 2.5 MG TABLET PO SCH ×2 (09:49→20:47)
[2020-06-03] MEDS: ASPIRIN 81 MG PO SCH (09:49)
[2020-06-03] MEDS ORDERED: METOPROLOL TARTRATE 25 MG TAB PO STA (09:54)
[2020-06-03] MEDS: CEFEPIME 2 GM in SODIUM CHLORIDE 0.9% 100 ML IVPB SCH ×2 (10:02→20:48)
[2020-06-03] MEDS: FUROSEMIDE 10 MG/ML 4 ML VIAL IV SCH (10:03)
--- NOTE | 2020-06-03 11:00 | ECHOF ---
Referral Reason:a fib, chf MEASUREMENTS -------- HEIGHT: 165.1 cm WEIGHT: 51.3 kg BP: 98/66 RVIDd: 3.5 cm (< 3.3) IVSd: 1.3 cm (0.6 - 1.1) LVIDd: 3.3 cm (3.9 - 5.3) LVPWd: 1.4 cm (0.6 - 1.1) IVSs: 1.4 cm LVIDs: 2.9 cm LVPWs: 1.1 cm LAESV Index (A-L): 59.46 ml/m Ao Diam: 3.3 cm (2.0 - 3.7) AV Cusp: 1.5 cm (1.5 - 2.6) LA Diam: 3.8 cm (2.7 - 3.8) MV EXCURSION: 26.377 mm (> 18.000) MV EF SLOPE: 91 mm/s (70 - 150) EPSS: 0.6 cm RAP: 10.00 mmHg RVSP: 55.23 mmHg FINDINGS -------- Atrial fibrillation. This was a technically good study. LV size, wall thickness and systolic function are normal, with an EF greater than 55%. The left rhea tricular size is normal. The right ventricle is moderately enlarged. LA is severely dilated >40 ml/m2 The right atrial size is normal. Patent foramen ovale present with right to left shunt. There is mild aortic valve sclerosis. There is no evidence of aortic regurgitation. Moderate mitral regurgitation is present. Mild tricuspid regurgitation present. There is moderate pulmonary hypertension. The right ventric ular systolic pressure, as measured by Doppler, is 55.23mmHg. Trace/mild (physiologic) pulmonic regurgitation. The aortic root size is normal. There is a small, generalized pericardial effusion present. Small Pleural Effusion. CONCLUSIONS -------- 1. LV size, wall thickness and systolic function are normal, with an EF greater than 55%. 2. The left ventricular size is normal. 3. The right ventricle is moderately enlarged. 4. LA is severely dilated >40 ml/m2 5. The right atrial size is normal. 6. Patent foramen ovale present with right to left shunt. 7. There is mild aortic valve sclerosis. 8. Moderate mitral regurgitation is present. 9. Mild tricuspid regurgitation present. 10. There is moderate pulmonary hypertension. 11. The right ventricular systolic pressure, as measured by Doppler, is 55.23mmHg. 12. Trace/mild (physiologic) pulmonic regurgitation. 13. The aortic root size is normal. 14. There is a small, generalized pericardial effusion present. 15. Small Pleural Effusion. ACCOUNTING CLERK: Yovana Corrales RDCS
[2020-06-03] MEDS: MULTIVITAMINS, THERA 1 EACH TAB PO SCH (13:04)
--- NOTE | 2020-06-03 13:23 | P.PN ---
Subjective Progress Note Date: 06/03/20 Principal diagnosis: Shortness of breath. 89-year-old female, who presents to the emergency department on 06/01/2020, at 1229, complaining of palpitations, rapid heartbeat, fluttering in the chest, and shortness of breath. The patient states that she's had these symptoms over the last couple days prior to admission and they have been progressing. The patient apparently does have a history of atrial fibrillation in the past. She states that she's had this problem in the past. She does have occasional mild cough. She denies any fever or chills. She is not coughing up any phlegm. There is no chest pain or pressure. She denies any nausea, vomiting, diarrhea. She denies any abdominal pain. The patient apparently was in the hospital recently with a bone infection to her left middle finger. She was on IV antibiotics here in the hospital and then IV antibiotics at home. Apparently they switched antibiotics from twice a day to once a day because of renal insufficiency. Her past medical history is positive for pneumonia, COPD, atrial fibrillation, kidney stones, and colonic polyps. She apparently also has a history of recent diagnosis of osteomyelitis of the left middle finger. Home medications included albuterol updrafts, Symbicort, and cefepime. ALLERGIES are sulfa antibiotics. White count is 9.0, hemoglobin 11.1, hematocrit 33.1, and platelet count is 235,000. PTT is 30.7. Sodium 132, potassium 4.3, chlorides 101, CO2 26, anion gap 5, BUN was 21, and creatinine 0.82. 89-year-old female seen again on 06/03/2020. The patient's doing well. She was admitted with shortness of breath, most likely secondary to atrial fibrillation with RVR. Also, the patient has underlying COPD from years of tobacco use. Atrial fibrillation is not new in th is patient. Cardiology increased her beta henny. The patient was also treated with antibiotics for osteomyelitis of the left middle finger. Also, the patient had a bit of fluid overload. Currently, the patient's doing well. She is on a couple liters of O2, and not receiving any IV fluids. Current white count is 10.1, hemoglobin 11.8, hematocrit 37.1, platelet count 304,000. Sodium 135, potassium 4.7, chlorides 99, CO2 28, anion gap 8, BUN 29, and creatinine 1.09. Vital signs are stable including a temperature 97.9, heart rate 84, respiratory rate 14, blood pressure 108/66, and a 2 L saturation of 96%. Objective - Vital Signs Vital signs: Vital Signs Temp 97.9 F 06/03/20 12:00 Pulse 84 06/03/20 13:06 Resp 14 06/03/20 12:00 BP 108/66 06/03/20 12:00 Pulse Ox 96 06/03/20 12:00 Intake & Output 06/02/20 06/03/20 06/03/20 18:59 06:59 18:59 Intake Total 720 720 Output Total 1800 120 400 Balance -1080 -120 320 Weight 51.3 kg 50.7 kg Intake: Oral 720 720 Output: Urine 1800 120 400 Other: Voiding Method Toilet Toilet Toilet # Voids 1 1 1 - Exam No acute distress, oriented 3. Nasal O2 in place at 2 L. No conversational dyspnea, use of accessory muscles, or audible wheezing. HEENT examination is grossly unremarkable. Mucous membranes are moist. No oral lesions. Neck supple. Full range of motion. No adenopathy thyromegaly or neck vein distention. Cardiovascular examination reveals irregular rhythm and rate. S1-S2 normal. No S3 or S4. No discernible murmur noted. Heart sounds are distant and heart rate is about 84 bpm. Lungs reveal mostly clear breath sounds. Mild basilar crackles are noted. No rhonchi or wheezes. Breath sounds are equal bilaterally but diminished throughout. Abdomen soft bowel sounds are heard. No masses or tenderness. Extremities are intact. No cyanosis clubbing or edema. Skin is without rash or lesion. Neurologic examination is brief but nonfocal. - Labs CBC & Chem 7: 06/03/20 06:55 06/03/20 06:55 Labs: Abnormal Lab Results - Last 24 Hours (Table) 06/03/20 06/03/20 Range/Units 06:55 06:55 Neutrophils # 8.8 H (1.3-7.7) k/uL Lymphocytes # 0.4 L (1.0-4.8) k/uL Sodium 135 L (137-145) mmol/L BUN 29 H (7-17) mg/dL Creatinine 1.09 H (0.52-1.04) mg/dL Glucose 112 H (74-99) mg/dL Assessment and Plan Assessment: Shortness of breath, likely related to underlying atrial fibrillation with RVR. There may also be a component of COPD. Atrial fibrillation with RVR. History of COPD secondary to previous tobacco use. Osteomyelitis of the left middle finger, currently on home IV antibiotics. Elevated troponins, possibly secondary to atrial fibrillation with RVR. Mild fluid overload with small bilateral pleural effusions. Plan: Plan dated 06/02/2020. Currently, the patient appears to be doing relatively well. The patient continues on cefepime for her osteomyelitis. In addition, she is on DuoNeb 4 times a day and when necessary as well as Symbicort, 160/4.5, 2 puffs twice a day. It does not appear that her COPD is particularly active at this time and most of her shortness of breath small degree of congestive heart failure/fluid overload. The patient's medications are appropriate. She is now on a factor X a inhibitor for her atrial fibrillation. She remains in atrial fibrillation with a heart rate about 90-95 bpm. We will continue to follow. Prognosis is guarded. Plan dated 04/02/2021. The patient appears to be doing well. Her beta henny dose was increased by cardiology. She's feeling much less short of breath. She does have underlying COPD but the COPD is inactive. She's currently on 2 L. She's not receiving any additional IV fluids. Chest x-ray, and abdominal x-rays were reviewed. Abdominal ultrasound was reviewed. Echocardiogram was also reviewed. Additional recommendations and suggestions are forthcoming. She is currently on a factor X a inhibitor for her atrial fibrillation. We will continue to follow her progress. Time with Patient: Less than 30
--- NOTE | 2020-06-03 13:38 | P.PN ---
Subjective HISTORY OF PRESENTING ILLNESS This is a pleasant 89-year-old female past medical history significant for who appeared ED, she quit smoking 2 weeks ago, colon resection and nonrheumatic mitral regurgitation. She is seen and examined sitting up in bed in no acute distress. She denies chest pain, shortness of breath, dizziness or palpitations. Her heart rates fluctuate between 120-130 currently. Blood pressure 108/66. Echocardiogram obtained reveals preserved LV systolic function with ejection fraction greater than 55%, severely dilated left atrium, patent foramen ovale with [id number]-svsh shunt, moderate mitral regurgitation, mild t ricuspid regurgitation, moderate pulmonary hypertension with an RVSP of 55 mmHg and a small generalized pericardial effusion. PHYSICAL EXAMINATION CONSTITUTIONAL: No apparent distress. Mildly tachyneic with conversation. HEENT: Head is normocephalic. Pupils are equal, round. Sclerae anicteric. Mucous membranes of the mouth are moist. No JVD. No carotid bruit. CHEST EXAMINATION: Bibsailar rales. No wheezes or rhonchi. No chest wall tenderness is noted on palpation or with deep breathing. HEART EXAMINATION: Irregular rate and rhythm. S1, S2 heard. Systolic ejection murmur at the left sternal border, no gallops or rub. Distant heart sounds. EXTREMITIES: 2+ peripheral pulses, no lower extremity edema and no calf tenderness. ASSESSMENT New onset paroxysmal atrial fibrillation with RVR, improved rates but still in afib Acute diastolic heart failure secondary to new onset afib Troponin elevation, secondary to Type II GA due to afib with RVR COPD Mitral regurgitation Chronic nicotine dependence PLAN Increase lopressor to 50 mg BID, give additional dose of 25 mg now. Continue IV diuresis for an another 24 hours. Repeat BMP in the morning. Discontinue aspirin and continue eliquis for thromboembolic protection. Nurse Practitioner note has been reviewed, I agree with a documented findings and plan of care. Patient was seen and examined. Objective - Vital Signs Vital signs: Vital Signs Temp 97.9 F 06/03/20 12:00 Pulse 84 06/03/20 13:06 Resp 14 06/03/20 12:00 BP 108/66 06/03/20 12:00 Pulse Ox 96 06/03/20 12:00 Intake & Output 06/02/20 06/03/20 06/03/20 18:59 06:59 18:59 Intake Total 720 720 Output Total 1800 120 400 Balance -1080 -120 320 Weight 51.3 kg 50.7 kg Intake: Oral 720 720 Output: Urine 1800 120 400 Other: Voiding Method Toilet Toilet Toilet # Voids 1 1 1 - Labs CBC & Chem 7: 06/03/20 06:55 06/03/20 06:55 Labs: Abnormal Lab Results - Last 24 Hours (Table) 06/03/20 06/03/20 Range/Units 06:55 06:55 Neutrophils # 8.8 H (1.3-7.7) k/uL Lymphocytes # 0.4 L (1.0-4.8) k/uL Sodium 135 L (137-145) mmol/L BUN 29 H (7-17) mg/dL Creatinine 1.09 H (0.52-1.04) mg/dL Glucose 112 H (74-99) mg/dL
--- NOTE | 2020-06-03 18:03 | XR ---
EXAMINATION TYPE: XR chest 1V portable DATE OF EXAM: 06/03/2020 COMPARISON: 2 days ago HISTORY: Short of breath TECHNIQUE: FINDINGS: Heart is enlarged. There is probably vascular congestion. There is blunting of the costophr enic angles. There is infiltrate at the lung bases. There are chest leads. IMPRESSION: Congestive heart failure with pleural effusions and bilateral lower lobe pneumonia. Pneum onia and pleural fluid are increased compared to recent exam. Heart failure also increased.
--- NOTE | 2020-06-03 18:23 | PN ---
PROGRESS NOTE DATE OF SERVICE: 06/03/2020 This 89-year-old woman who was admitted with atrial fibrillation with a fast ventricular rate also had possible acute iud-VS-wpbrvnh-elevation myocardial infarction. The patient also had shortness of breath. A 2D echo with Doppler done today showed ejection fraction about 55% and LA was severely dilated, more than 40. Moderate pulmonary hypertension was noted and moderate mitral regurgitation was also noted. Patent foramen ovale was also noted with ywekc-[id number] shunt. The initial chest x-ray, which was reviewed personally by me, showed some evidence of CHF. Past medical history reviewed. REVIEW OF SYSTEMS: CARDIOVASCULAR SYSTEM: As mentioned earlier. RESPIRATORY SYSTEM: As mentioned earlier. GI: No nausea, vomiting. : No dysuria or retention. NERVOUS SYSTEM: No numbness, weakness. CURRENT MEDICATIONS: Reviewed. They include Tylenol, [place], DuoNeb, Xanax, Eliquis, Symbicort, cefepime. Doses are reviewed. PHYSICAL EXAMINATION: Patient is alert, oriented x3. Pulse is 80, blood pressure 108/66, respiration 14, temperature 96.9, pulse ox 96% on 2 L. HEENT: Conjunctivae normal. NECK: No jugular venous distention. CARDIOVASCULAR SYSTEM: S1, S2 muffled. RESPIRATORY SYSTEM: Breath sounds diminished at the bases. A few rhonchi and crackles. ABDOMEN: Soft, non-tender. LEGS: No edema. No swelling. NERVOUS SYSTEM: No focal deficit. LABS: CBC within normal limits. Sodium 135, potassium 4.7, creatinine is 1.09. UA, RBCs. ASSESSMENT: 1. Atrial fibrillation with fast ventricular rate. 2. Troponin elevated up to 1.050; possible acute yzk-AR-scsuler-elevation myocardial infarction. 3. Shortness of breath, possible chronic obstructive pulmonary disease, acute exacerbation. 4. Patent foramen ovale with moderate mitral regurgitation and moderate pulmonary hypertension with severely dilated left atrium more than 40 mL/m2. 5. Increased AST, ALT. 6. Mild hematuria. 7. Hyponatremia. 8. History of chronic obstructive pulmonary disease. 9. History of nephrolithiasis. 10.History of colectomy. 11.History of cholecystectomy. 12.Mild protein-calorie malnutrition. BMI of 17.8. 13.FULL CODE. RECOMMENDATIONS AND DISCUSSION: I recommend to continue current medications, continue with the monitoring, symptomatic treatment. The patient is also receiving Lasix 40 daily. Repeat chest x-ray and continue to monitor. Closely follow with Cardiology and Pulmonology. Guarded prognosis. Further recommendations to follow. MMODL / IJN: [id number] / [id number]
[2020-06-03] MEDS: METOPROLOL TARTRATE 50 MG TAB PO SCH (20:47)
[2020-06-03] MEDS: ALPRAZolam 0.25 MG TAB PO PRN (20:50)
[2020-06-04] MEDS: IPRATROPIUM-ALBUTEROL 3 ML NEB INHALATION SCH ×4 (07:00→19:38)
[2020-06-04] MEDS: SYMBICORT 160-4.5 MCG INHALER INHALATION SCH ×2 (07:00→19:38)
[2020-06-04 08:42] LABS: Calcium 8.4 mg/dL (8.4-10.2); Potassium 4.7 mmol/L (3.5-5.1)
[2020-06-04] MEDS: APIXABAN 2.5 MG TABLET PO SCH ×2 (09:20→20:32)
[2020-06-04] MEDS: CEFEPIME 2 GM in SODIUM CHLORIDE 0.9% 100 ML IVPB SCH ×2 (09:21→20:51)
[2020-06-04] MEDS: METOPROLOL TARTRATE 50 MG TAB PO SCH ×2 (09:21→20:32)
[2020-06-04 09:43] LABS: Basophils % (A) 0 %; Eosinophils # (A) 0.3 k/uL (0-0.7); Eosinophils % (A) 3 %; HCT 36.8 % (34.0-46.0); HGB 11.4 gm/dL (11.4-16.0); Lymphocytes # (A) 0.4 k/uL (1.0-4.8); Lymphocytes % (A) 3 %; MCH 29.2 pg (25.0-35.0); MCHC 31.1 g/dL (31.0-37.0); Mean Platelet Volume 8.4; Monocytes # (A) 0.6 k/uL (0-1.0); Monocytes % (A) 5 %; Neutrophils # (A) 10.1 k/uL (1.3-7.7); Neutrophils % (A) 87 %; Platelet Count 337 k/uL (150-450); RBC 3.92 m/uL (3.80-5.40); RDW 13.4 % (11.5-15.5); WBC 11.6 k/uL (3.8-10.6)
[2020-06-04] MEDS ORDERED: DEXTROSE 5% IN WATER 100 ML with AMIODARONE 150 MG IV ONE (10:30)
[2020-06-04] MEDS: FUROSEMIDE 10 MG/ML 4 ML VIAL IV SCH (10:30)
[2020-06-04] MEDS ORDERED: AMIODARONE 360 MG in DEXTROSE 5% IN WATER 200 ML IV ONE ×2 (11:30)
--- NOTE | 2020-06-04 11:47 | P.PN ---
Subjective Progress Note Date: 06/04/20 89-year-old female, who presents to the emergency department on 06/01/2020, at 1229, complaining of palpitations, rapid heartbeat, fluttering in the chest, and shortness of breath. The patient states that she's had these symptoms over the last couple days prior to admission and they have been progressing. The patient apparently does have a history of atrial fibrillation in the past. She states that she's had this problem in the past. She does have occasional mild cough. She denies any fever or chills. She is not coughing up any phlegm. There is no chest pain or pressure. She denies any nausea, vomiting, diarrhea. She denies any abdominal pain. The patient apparently was in the hospital recently with a bone infection to her left middle finger. She was on IV antibiotics here in the hospital and then IV antibiotics at home. Apparently they switched antibiotics from twice a day to once a day because of renal insufficiency. Her past medical history is positive for pneumonia, COPD, atrial fibrillation, kidney stones, and colonic polyps. She apparently also has a history of recent diagnosis of osteomyelitis of the left middle finger. Home medications included albuterol updrafts, Symbicort, and cefepime. ALLERGIES are sulfa antibiotics. White count is 9.0, hemoglobin 11.1, hematocrit 33.1, and platelet count is 235,000. PTT is 30.7. Sodium 132, potassium 4.3, chlorides 101, CO2 26, anion gap 5, BUN was 21, and creatinine 0.82. 89-year-old female seen again on 06/03/2020. The patient's doing well. She was admitted with shortness of breath, most likely secondary to atrial fibrillation with RVR. Also, the patient has underlying COPD from years of tobacco use. Atrial fibrillation is not new in this patient. Cardiology increased her beta henny. The patient was also treated with antibiotics for osteomyelitis of the left middle finger. Also, the patient had a bit of fluid overload. Currently, the patient's doing well. She is on a couple liters of O2, and not receiving any IV fluids. Current white count is 10.1, hemoglobin 11.8, hematocrit 37.1, platelet count 304,000. Sodium 135, potassium 4.7, chlorides 99, CO2 28, anion gap 8, BUN 29, and creatinine 1.09. Vital signs are stable including a temperature 97.9, heart rate 84, respiratory rate 14, blood pressure 108/66, and a 2 L saturation of 96%. The patient is seen today 06/04/2020 in follow-up on the selective care unit. She is currently resting fairly comfortably in bed. She is dyspneic with minimal exertion. Dyspneic with conversation. States she is breathing about the same today as compared to yesterday. Chest x-ray revealed evidence of congestive heart failure and pleural effusions and suspected bilateral pneumonia. Echocardiogram revealed preserved left ventricular systolic function. There was moderate mitral regurgitation. Moderate pulmonary hypertension. White count 11.6. Hemoglobin 11.4. Sodium 134. Potassium 4.7. Creatinine 1.28. She remains on bronchodilators, antibiotics in the form of cefepime, diuretics. Anticoagulated with Eliquis. She is remaining in atrial fibrillation with a rapid ventricular response. Amiodarone to be initiated. Objective - Vital Signs Vital signs: Vital Signs Temp 98.7 F 06/04/20 08:00 Pulse 110 H 06/04/20 11:16 Resp 19 06/04/20 08:00 BP 108/65 06/04/20 08:00 Pulse Ox 96 06/04/20 08:00 Intake & Output 06/03/20 06/04/20 06/04/20 18:59 06:59 18:59 Intake Total 956 120 350 Output Total 400 500 300 Balance 556 -380 50 Weight 74.4 kg Intake: IV 20 Invasive Line 1 10 Invasive Line 2 10 Intake, IV Titration 100 Amount Cefepime 2 gm In Sodium 100 Chloride 0.9% 100 ml @ 25 mls/hr IVPB Q12H [facility] Rx# :[id number] Oral [id number] Output: Urine 400 500 300 Other: Voiding Method Toilet Toilet Toilet # Voids 2 1 1 - Exam GENERAL EXAM: Alert, pleasant 89-year-old female patient, on 2 L nasal cannula, comfortable in no apparent distress. HEAD: Normocephalic. EYES: Normal reaction of pupils, equal size. NOSE: Clear with pink turbinates. THROAT: No erythema or exudates. NECK: No masses, no JVD. CHEST: No chest wall deformity. LUNGS: Equal air entry with crackles in the bilateral posterior bases. CVS: S1 and S2 normal with no audible murmur, irregular rhythm. Tachycardic ABDOMEN: No hepatosplenomegaly, normal bowel sounds, no guarding or rigidity. SPINE: No scoliosis or deformity SKIN: No rashes CENTRAL NERVOUS SYSTEM: No focal deficits, tone is normal in all 4 extremities. EXTREMITIES: There is no peripheral edema. No clubbing, no cyanosis. Peripheral pulses are intact. - Labs CBC & Chem 7: 06/04/20 06:55 06/04/20 06:55 Labs: Abnormal Lab Results - Last 24 Hours (Table) 06/04/20 06/04/20 Range/Units 06:55 06:55 WBC 11.6 H (3.8-10.6) k/uL Sodium 134 L (137-145) mmol/L Chloride 97 L (98-107) mmol/L Carbon Dioxide 31 H (22-30) mmol/L BUN 36 H (7-17) mg/dL Creatinine 1.28 H (0.52-1.04) mg/dL Glucose 122 H (74-99) mg/dL Assessment and Plan Assessment: Acute hypoxic respiratory failure related to underlying atrial fibrillation with RVR. There may also be a component of COPD. Atrial fibrillation with RVR. On amiodarone. Anticoagulated with Eliquis. History of COPD secondary to previous tobacco use. Osteomyelitis of the left middle finger, currently on home IV antibiotics. Elevated troponins, possibly secondary to atrial fibrillation with RVR. Mild fluid overload with small bilateral pleural effusions. Plan: The patient was seen and evaluated by Dr. Zelaya Continue bronchodilators Continue antibiotics Initiated on amiodarone Overall prognosis is guarded We will continue to follow I, the cosigning physician, performed a history & physical examination of the patient. Lungs sounds with crackles in the bilateral posterior bases. Maintaining good O2 saturations in the 90s on 2 L/m per nasal cannula. I discussed the assessment and plan of care with my nurse practitioner, Rose Mary Mcintosh. I attest to the above note as dictated by her.
[2020-06-04 12:06] LABS: Poikilocytosis (M) Present; Toxic Granulation Present
--- NOTE | 2020-06-04 12:30 | P.PN ---
Subjective 89-year-old female presenting with shortness of breath and A. fib with RVR. She was treated with IV Lasix and oral Lopressor rate history the dose was increased to 50 g twice daily However she remains in A. fib with RVR or 2 she feels a lot better she looks comfortable She denies any chest discomfort she denies any shortness of breath. Her andrzej thing is better On examination her heart rate is 130 beats a minute irregular but pressure 108/65 mmHg Breath sounds are reduced bilaterally but no rhonchi no crackles Heart sounds are tachycardic No lower extremity edema Abdomen soft Impression New onset atrial fibrillation with RVR Suboptimal heart rate controlled despite treatment of heart failure symptoms and increasing metoprolol to 50 mg twice daily Type II WI secondary to A. fib with RVR Acute diastolic heart failure secondary to A. fib with RVR Suggest Her blood pressure is low normal. We will increased her metoprolol She is on anticoagulation I will start IV amiodarone and hopefully this will provide better rate control Objective - Vital Signs Vital signs: Vital Signs Temp 98.7 F 06/04/20 08:00 Pulse 110 H 06/04/20 11:16 Resp 19 06/04/20 08:00 BP 108/65 06/04/20 08:00 Pulse Ox 96 06/04/20 08:00 Intake & Output 06/03/20 06/04/20 06/04/20 18:59 06:59 18:59 Intake Total 956 120 350 Output Total 400 500 300 Balance 556 -380 50 Weight 74.4 kg Intake: IV 20 Invasive Line 1 10 Invasive Line 2 10 Intake, IV Titration 100 Amount Cefepime 2 gm In Sodium 100 Chloride 0.9% 100 ml @ 25 mls/hr IVPB Q12H [facility] Rx# :[id number] Oral [id number] Output: Urine 400 500 300 Other: Voiding Method Toilet Toilet Toilet # Voids 2 1 1 - Labs CBC & Chem 7: 06/04/20 06:55 06/04/20 06:55 Labs: Abnormal Lab Results - Last 24 Hours (Table) 06/04/20 06/04/20 Range/Units 06:55 06:55 WBC 11.6 H (3.8-10.6) k/uL Neutrophils # 10.1 H (1.3-7.7) k/uL Lymphocytes # 0.4 L (1.0-4.8) k/uL Sodium 134 L (137-145) mmol/L Chloride 97 L (98-107) mmol/L Carbon Dioxide 31 H (22-30) mmol/L BUN 36 H (7-17) mg/dL Creatinine 1.28 H (0.52-1.04) mg/dL Glucose 122 H (74-99) mg/dL
[2020-06-04] MEDS: FUROSEMIDE 20 MG TAB PO SCH (12:41)
[2020-06-04] MEDS: MULTIVITAMINS, THERA 1 EACH TAB PO SCH (12:41)
--- NOTE | 2020-06-04 14:49 | P.PN ---
Subjective Progress Note Date: 06/04/20 This is an 89-year-old female who was recently admitted with true fibrillation with fast ventricular rate and also possibility of acute non-ST segment elevation LA and is being closely monitored. Cardiology and pulmonary following closely. Patient continues to be tachycardic and states is feeling palpitations at times and having dyspnea with exertion. Heart rate in the 130s and patient is being started on amiodarone drip and adjustments to metoprolol have been made. Patient is currently on 2 L of oxygen and will undergo home evaluation for possible oxygen in the outpatient setting. Case Management is aware and a prescription was provided. Patient is also receiving Lasix and states that it is making her urinate often and would like to decrease the dose. Patient currently denies any chest pain, reports intermittent shortness of breath with exertion and states she felt short of breath when getting up and back to the bathroom. She denies any dizziness or lightheadedness. Patient is afebrile. Patient tolerating diet with no reports of nausea or vomiting noted. Review of systems: Constitutional: No reports of fatigue, fever, or chills Cardiovascular: No reports of chest pain, reports palpitations Respiratory: Reports shortness of breath with exertion GI: No reports of nausea, vomiting, or diarrhea : No reports of dysuria or retention Neurovascular: No reports of weakness or numbness All medications have been reviewed Active Medications Acetaminophen (Acetaminophen Tab 500 Mg Tab) 500 mg PO Q6HR PRN PRN Reason: Fever and/ or Pain Last Admin: 06/03/20 03:32 Dose: 500 mg Documented by: Hydrocodone Bitart/Acetaminophen (Hydrocodone/Apap 5-325mg 1 Each Tab) 1 each PO Q6HR PRN PRN Reason: Pain Albuterol/Ipratropium (Ipratropium-Albuterol 3 Ml Neb) 3 ml INHALATION RT-QID [facility] Last Admin: 06/04/20 11:00 Dose: 3 ml Documented by: Albuterol/Ipratropium (Ipratropium-Albuterol 3 Ml Neb) 3 ml INHALATION RT-QID PRN PRN Reason: Shortness Of Breath Or Wheezing Alprazolam (Alprazolam 0.25 Mg Tab) 0.25 mg PO TID PRN PRN Reason: Anxiety Last Admin: 06/03/20 20:50 Dose: 0.25 mg Documented by: Apixaban (Apixaban 2.5 Mg Tablet) 2.5 mg PO BID [facility] Last Admin: 06/04/20 09:20 Dose: 2.5 mg Documented by: Budesonide/Formoterol Fumarate (Symbicort 160-4.5 Mcg Inhaler) 2 puff INHALATION RT-BID [facility] Last Admin: 06/04/20 07:00 Dose: 2 puff Documented by: Furosemide (Furosemide 20 Mg Tab) 20 mg PO DAILY [facility] Last Admin: 06/04/20 12:41 Dose: 20 mg Documented by: Cefepime HCl 2 gm/ Sodium (Chloride) 100 mls @ 25 mls/hr IVPB Q12H [facility] Last Admin: 06/04/20 09:21 Dose: 25 mls/hr Documented by: Amiodarone HCl 360 mg/ (Dextrose/Water) 200 mls @ 33.333 mls/hr IV .Q6H [facility]; Protocol Stop: 06/04/20 17:29 Amiodarone HCl 450 mg/ (Dextrose/Water) 250 mls @ 16.667 mls/hr IV .Q15H [facility]; Protocol Stop: 06/05/20 11:29 Metoprolol Tartrate (Metoprolol Tartrate 50 Mg Tab) 50 mg PO BID [facility] Last Admin: 06/04/20 09:21 Dose: 50 mg Documented by: Multivitamins (Multivitamins, Thera 1 Each Tab) 1 each PO DAILY@1200 [facility] Last Admin: 06/04/20 12:41 Dose: 1 each Documented by: Nitroglycerin (Nitroglycerin Sl Tabs 0.4 Mg Tab) 0.4 mg SUBLINGUAL Q5M PRN PRN Reason: Chest Pain Sodium Chloride (Sodium Chloride 0.9% Flush 10 Ml Syringe) 10 ml IV BID [facility] Last Admin: 06/04/20 09:21 Dose: 10 ml Documented by: Objective - Vital Signs Vital signs: Vital Signs Temp 98.7 F 06/04/20 08:00 Pulse 110 H 06/04/20 11:16 Resp 19 06/04/20 08:00 BP 108/65 06/04/20 08:00 Pulse Ox 96 06/04/20 08:00 Intake & Output 06/03/20 06/04/20 06/04/20 18:59 06:59 18:59 Intake Total 956 120 350 Output Total 400 500 300 Balance 556 -380 50 Weight 74.4 kg Intake: IV 20 Invasive Line 1 10 Invasive Line 2 10 Intake, IV Titration 100 Amount Cefepime 2 gm In Sodium 100 Chloride 0.9% 100 ml @ 25 mls/hr IVPB Q12H [facility] Rx# :[id number] Oral 956 350 Output: Urine 400 500 300 Other: Voiding Method Toilet Toilet Toilet # Voids 2 1 1 - Exam Gen: This is a 89-year-old female awake, alert and oriented 3, well-developed, well-nourished. Temp is 98.7F, pulse is 130, respirations are 19, blood pressure is 108/65, oxygen saturation is 96% on 2 L via nasal cannula. HEENT: Head is atraumatic, normocephalic. Pupils equal, round. Sclerae is anicteric. NECK: Supple. No JVD. No lymphadenopathy. No thyromegaly. LUNGS: Diminished breath sounds at the bases with no wheezing or rhonchi noted. No intercostal retractions. HEART: Irregularly irregular. S1, S2 are muffled ABDOMEN: Soft. Bowel sounds are present. No masses. No tenderness. EXTREMITIES: No pedal edema. No calf tenderness. NEUROLOGICAL: Patient is awake, alert and oriented x3. No focal deficits noted. - Labs CBC & Chem 7: 06/04/20 06:55 06/04/20 06:55 Labs: Abnormal Lab Results - Last 24 Hours (Table) 06/04/20 06/04/20 Range/Units 06:55 06:55 WBC 11.6 H (3.8-10.6) k/uL Neutrophils # 10.1 H (1.3-7.7) k/uL Lymphocytes # 0.4 L (1.0-4.8) k/uL Sodium 134 L (137-145) mmol/L Chloride 97 L (98-107) mmol/L Carbon Dioxide 31 H (22-30) mmol/L BUN 36 H (7-17) mg/dL Creatinine 1.28 H (0.52-1.04) mg/dL Glucose 122 H (74-99) mg/dL Assessment and Plan Assessment: Atrial fibrillation with fast ventricular rate Troponin elevated up to 1.050, possible acute non-ST segment elevation myocardial infarction Shortness of breath, possible chronic obstructive pulmonary disease, acute exacerbation 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 Patient blood pressure slightly on the lower side and is receiving Lasix and will cut the dose in half today. Continue to monitor vital signs and labs closely. Patient continues to be tachycardic and cardiology following closely. Patient being placed on amiodarone drip and metoprolol being increased. Patient was having some shortness of breath with exertion and was placed on 2 L of oxygen. Will assess for possible home oxygen evaluation and case management is aware. Pulmonary is following as well. Due to multiple complex medical issues, prognosis is guarded. Further recommendations to follow.
[2020-06-04] MEDS ORDERED: AMIODARONE 450 MG in DEXTROSE 5% IN WATER 250 ML IV SCH ×2 (17:30)
[2020-06-04] MEDS: AMIODARONE 450 MG in DEXTROSE 5% IN WATER 250 ML IV SCH ×2 (20:39)
[2020-06-04 23:11] VITALS: RESP 16
[2020-06-05] MEDS: CEFEPIME 2 GM in SODIUM CHLORIDE 0.9% 100 ML IVPB SCH (07:57)
[2020-06-05] MEDS: FUROSEMIDE 20 MG TAB PO SCH (07:58)
[2020-06-05] MEDS: APIXABAN 2.5 MG TABLET PO SCH (07:58)
[2020-06-05] MEDS: METOPROLOL TARTRATE 50 MG TAB PO SCH (07:58)
[2020-06-05] MEDS: SYMBICORT 160-4.5 MCG INHALER INHALATION SCH (08:20)
[2020-06-05] MEDS: IPRATROPIUM-ALBUTEROL 3 ML NEB INHALATION SCH ×2 (08:20→11:05)
[2020-06-05 08:29] VITALS: TEMP 97.4
[2020-06-05 09:34] LABS: Basophils % (A) 0 %; Eosinophils # (A) 0.4 k/uL (0-0.7); Eosinophils % (A) 4 %; HCT 36.6 % (34.0-46.0); HGB 11.9 gm/dL (11.4-16.0); Lymphocytes # (A) 0.4 k/uL (1.0-4.8); Lymphocytes % (A) 4 %; MCH 30.6 pg (25.0-35.0); MCHC 32.6 g/dL (31.0-37.0); MCV 93.9 fL (80.0-100.0); Mean Platelet Volume 7.8; Monocytes # (A) 0.5 k/uL (0-1.0); Monocytes % (A) 5 %; Neutrophils # (A) 8.4 k/uL (1.3-7.7); Neutrophils % (A) 85 %; Platelet Count 300 k/uL (150-450); RDW 13.3 % (11.5-15.5); WBC 9.8 k/uL (3.8-10.6)
[2020-06-05 10:21] LABS: Calcium 8.3 mg/dL (8.4-10.2); Potassium 4.4 mmol/L (3.5-5.1)
[2020-06-05 11:08] VITALS: BP 112/71
[2020-06-05 11:19] VITALS: PULSE 96
--- NOTE | 2020-06-05 11:36 | P.PN ---
Subjective Progress Note Date: 06/05/20 Principal diagnosis: My. josephine with RVR 89-year-old female, who presents to the emergency department on 06/01/2020, at 1229, complaining of palpitations, rapid heartbeat, fluttering in the chest, and shortness of breath. The patient states that she's had these symptoms over the last couple days prior to admission and they have been progressing. The patient apparently does have a history of atrial fibrillation in the past. She states that she's had this problem in the past. She does have occasional mild cough. She denies any fever or chills. She is not coughing up any phlegm. There is no chest pain or pressure. She denies any nausea, vomiting, diarrhea. She denies any abdominal pain. The patient apparently was in the hospital recently with a bone infection to her left middle finger. She was on IV antibiotics here in the hospital and then IV antibiotics at home. Apparently they switched antibiotics from twice a day to once a day because of renal insufficiency. Her past medical history is positive for pneumonia, COPD, atrial fibrillation, kidney stones, and colonic polyps. She apparently also has a history of recent diagnosis of osteomyelitis of the left middle finger. Home medications included albuterol updrafts, Symbicort, and cefepime. ALLERGIES are sulfa antibiotics. White count is 9.0, hemoglobin 11.1, hematocrit 33.1, and platelet count is 235,000. PTT is 30.7. Sodium 132, potassium 4.3, chlorides 101, CO2 26, anion gap 5, BUN was 21, and creatinine 0.82. 89-year-old female seen again on 06/03/2020. The patient's doing well. She was admitted with shortness of breath, most likely secondary to atrial fibrillation with RVR. Also, the patient has underlying COPD from years of tobacco use. Atrial fibrillation is not new in this patient. Cardiology increased her beta henny. The patient was also treated with antibiotics for osteomyelitis of the left middle finger. Also, the patient had a bit of fluid overload. Currently, the patient's doing well. She is on a couple liters of O2, and not receiving any IV fluids. Current white count is 10.1, hemoglobin 11.8, hematocrit 37.1, platelet count 304,000. Sodium 135, potassium 4.7, chlorides 99, CO2 28, anion gap 8, BUN 29, and creatinine 1.09. Vital signs are stable including a temperature 97.9, heart rate 84, respiratory rate 14, blood pressure 108/66, and a 2 L saturation of 96%. The patient is seen today 06/04/2020 in follow-up on the selective care unit. She is currently resting fairly comfortably in bed. She is dyspneic with minimal exertion. Dyspneic with conversation. States she is breathing about the same today as compared to yesterday. Chest x-ray revealed evidence of congestive heart failure and pleural effusions and suspected bilateral pneumoni a. Echocardiogram revealed preserved left ventricular systolic function. There was moderate mitral regurgitation. Moderate pulmonary hypertension. White count 11.6. Hemoglobin 11.4. Sodium 134. Potassium 4.7. Creatinine 1.28. She remains on bronchodilators, antibiotics in the form of cefepime, diuretics. Anticoagulated with Eliquis. She is remaining in atrial fibrillation with a rapid ventricular response. Amiodarone to be initiated. The patient is seen today 06/05/2020 in follow-up on the selective care unit. She is currently resting comfortably in bed. Awake and alert in no acute distress. She remains on amiodarone drip at 0.5 mg/m. Her heart rate is less than 100 currently. No chest pain or palpitations. No shortness of breath. Maintaining O2 saturations in the 90s on 2 L/m per nasal cannula. White count 9.8. Hemoglobin 11.9. Sodium 131. Potassium 4.4. Creatinine 1.27. She remains on bronchodilators, antibiotics in the form of cefepime. Anticoagulated with Eliquis. Objective - Vital Signs Vital signs: Vital Signs Temp 97.4 F L 06/05/20 08:00 Pulse 96 06/05/20 11:18 Resp 16 06/05/20 11:08 BP 112/71 06/05/20 11:08 Pulse Ox 95 06/05/20 11:08 Intake & Output 06/04/20 06/05/20 06/05/20 18:59 06:59 18:59 Intake Total 990 364 200 Output Total 800 600 200 Balance 190 -236 0 Weight 51.4 kg Intake: Intake, IV Titration 100 364 Amount Amiodarone 360 mg In 264 Dextrose 5% in Water 200 ml @ 1 MG/MIN 33.333 mls/ hr IV .Q6H [facility] Rx#: [id number] Cefepime 2 gm In Sodium 100 100 Chloride 0.9% 100 ml @ 25 mls/hr IVPB Q12H [facility] Rx# :[id number] Oral 890 200 Output: Urine 800 600 200 Other: Voiding Method Toilet Toilet # Voids 3 1 1 - Exam GENERAL EXAM: Alert, pleasant 89-year-old female patient, on 2 L nasal cannula, comfortable in no apparent distress. HEAD: Normocephalic. EYES: Normal reaction of pupils, equal size. NOSE: Clear with pink turbinates. THROAT: No erythema or exudates. NECK: No masses, no JVD. CHEST: No chest wall deformity. LUNGS: Equal air entry with crackles in the bilateral posterior bases. CVS: S1 and S2 normal with no audible murmur, irregular rhythm. Tachycardic ABDOMEN: No hepatosplenomegaly, normal bowel sounds, no guarding or rigidity. SPINE: No scoliosis or deformity SKIN: No rashes CENTRAL NERVOUS SYSTEM: No focal deficits, tone is normal in all 4 extremities. EXTREMITIES: Left middle finger dressing dry and intact. There is no peripheral edema. No clubbing, no cyanosis. Peripheral pulses are intact. - Labs CBC & Chem 7: 06/05/20 09:20 06/05/20 09:20 Labs: Abnormal Lab Results - Last 24 Hours (Table) 06/04/20 06/05/20 06/05/20 Range/Units 06:55 09:20 09:20 Neutrophils # 10.1 H 8.4 H (1.3-7.7) k/uL Lymphocytes # 0.4 L 0.4 L (1.0-4.8) k/uL Sodium 131 L (137-145) mmol/L Chloride 96 L (98-107) mmol/L BUN 36 H (7-17) mg/dL Creatinine 1.27 H (0.52-1.04) mg/dL Glucose 162 H (74-99) mg/dL Calcium 8.3 L (8.4-10.2) mg/dL Assessment and Plan Assessment: Acute hypoxic respiratory failure related to underlying atrial fibrillation with RVR. There may also be a component of COPD. Atrial fibrillation with RVR. On amiodarone. Anticoagulated with Eliquis. History of COPD secondary to previous tobacco use. Osteomyelitis of the left middle finger, currently on home IV antibiotics. Elevated troponins, possibly secondary to atrial fibrillation with RVR. Mild fluid overload with small bilateral pleural effusions. Plan: The patient was seen and evaluated by Dr. Zelaya Continue the current treatment plan We will continue to follow I, the cosigning physician, performed a history & physical examination of the patient. Lungs sounds with crackles in the bilateral posterior bases. Maintaining good O2 saturations in the 90s on 2 L/m per nasal cannula. I dis cussed the assessment and plan of care with my nurse practitioner, Rose Mary Mcintosh. I attest to the above note as dictated by her.
[2020-06-05] MEDS: AMIODARONE 450 MG in DEXTROSE 5% IN WATER 250 ML IV SCH ×2 (12:50)
--- NOTE | 2020-06-05 12:55 | P.PN ---
Subjective HISTORY OF PRESENTING ILLNESS This is a pleasant 89-year-old female past medical history significant for who appeared ED, she quit smoking 2 weeks ago, colon resection and nonrheumatic mitral regurgitation. She is seen and examined sitting up in bed in no acute distress. She denies chest pain, shortness of breath, dizziness or palpitations. Her heart rates are running in the low 100-106. Blood pressure 112/71. Laboratory data reviewed, sodium 131, potassium 4.4, creatinine 1.27. PHYSICAL EXAMINATION CONSTITUTIONAL: No apparent distress. Mildly tachyneic with conversation. HEENT: Head is normocephalic. Pupils are equal, round. Sclerae anicteric. Mucous membranes of the mouth are moist. No JVD. No carotid bruit. CHEST EXAMINATION: Bibsailar rales. No wheezes or rhonchi. No chest wall tenderness is noted on palpation or with deep breathing. HEART EXAMINATION: Irregular rate and rhythm. S1, S2 heard. Systolic ejection murmur at the left sternal border, no gallops or rub. Distant heart sounds. EXTREMITIES: 2+ peripheral pulses, no lower extremity edema and no calf tenderness. ASSESSMENT New onset paroxysmal atrial fibrillation with RVR, improved rates but still in afib Acute diastolic heart failure secondary to new onset afib Troponin elevation, secondary to Type II SD due to afib with RVR COPD Mitral regurgitation Chronic nicotine dependence PLAN Transition to oral amiodarone. Prescription to the pharmacy. Patient can be discharged home this evening, follow-up in the office with Dr. Hickman. Nurse Practitioner note has been reviewed, I agree with a documented findings and plan of care. Patient was seen and examined. Objective - Vital Signs Vital signs: Vital Signs Temp 97.4 F L 06/05/20 08:00 Pulse 96 06/05/20 11:18 Resp 16 06/05/20 11:08 BP 112/71 06/05/20 11:08 Pulse Ox 95 06/05/20 11:08 Intake & Output 06/04/20 06/05/20 06/05/20 18:59 06:59 18:59 Intake Total 990 364 200 Output Total 800 600 200 Balance 190 -236 0 Weight 51.4 kg Intake: Intake, IV Titration 100 364 Amount Amiodarone 360 mg In 264 Dextrose 5% in Water 200 ml @ 1 MG/MIN 33.333 mls/ hr IV .Q6H [facility] Rx#: [id number] Cefepime 2 gm In Sodium 100 100 Chloride 0.9% 100 ml @ 25 mls/hr IVPB Q12H [facility] Rx# :[id number] Oral 890 200 Output: Urine 800 600 200 Other: Voiding Method Toilet Toilet # Voids 3 1 1 - Labs CBC & Chem 7: 06/05/20 09:20 06/05/20 09:20 Labs: Abnormal Lab Results - Last 24 Hours (Table) 06/05/20 06/05/20 Range/Units 09:20 09:20 Neutrophils # 8.4 H (1.3-7.7) k/uL Lymphocytes # 0.4 L (1.0-4.8) k/uL Sodium 131 L (137-145) mmol/L Chloride 96 L (98-107) mmol/L BUN 36 H (7-17) mg/dL Creatinine 1.27 H (0.52-1.04) mg/dL Glucose 162 H (74-99) mg/dL Calcium 8.3 L (8.4-10.2) mg/dL
[2020-06-05] MEDS ORDERED: AMIODARONE 200 MG TAB PO SCH ×2 (13:15→21:00)
[2020-06-05] MEDS: MULTIVITAMINS, THERA 1 EACH TAB PO SCH (13:47)
--- NOTE | 2020-06-05 15:46 | P.DS ---
Providers Date of admission: 06/01/20 14:54 Expected date of discharge: 06/05/20 Attending physician: Hossein Braun Consults: 06/01/20 14:54 Consult Physician Urgent Consulting Provider: Yonatan Gooden Consult Reason/Comments: a fib, chf Do you want consulting provider notified?: Yes 06/01/20 18:29 Consult Physician Routine Consulting Provider: Juan Zelaya Consult Reason/Comments: copd Do you want consulting provider notified?: Yes 06/05/20 10:39 Consult Physician Urgent Consulting Provider: Russ Casey Consult Reason/Comments: antibiotic recommendations for discharge for [facility] Do you want consulting provider notified?: Yes Primary care physician: Georgiana Rehman Hospital Course: Final diagnosis Atrial fibrillation with fast ventricular rate Troponin elevated up to 1.050, possible acute non-ST segment elevation myocardial infarction Shortness of breath, possible chronic obstructive pulmonary disease, acute exacerbation 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 Patient will follow-up with Dr. Rehman in the outpatient setting upon discharge. She will continue with home care in the outpatient setting. Patient also instructed to follow up with cardiology, pulmonary, and infectious disease. Patient will continue with IV antibiotics in the form of cefepime twice daily as previously prescribed by infectious disease. Total time taken is greater than 35 minutes. Hospital course This is a 89-year-old female who was recently admitted with atrial fibrillation with fast ventricular rate and also possibility of an acute non-ST segment elevation myocardial infarction and was being closely monitored. Patient was initially placed on Cardizem and adjustments made to metoprolol. Patient continued to have elevated heart rate and placed on IV amiodarone and transitioned oral. Patient was seen and evaluated closely by cardiology and will be following up outpatient with them as well. Patient also seen and evaluated by pulmonary for continued shortness of breath and was requiring 2 L of oxygen via nasal cannula for shortness of breath and dyspnea with exertion. Case management made arrangements for oxygen for the home setting and patient will be following up with pulmonary in the outpatient setting. Patient will be continuing with home care as she is currently receiving IV antibiotics in the form of cefepime with infectious disease for osteomyelitis of the right middle finger. Currently no reports of chest pain, worsening shortness of breath, or palpitations. Patient is afebrile. No reports of nausea or vomiting and patient is tolerating diet. Patient will be discharged home today. Guarded prognosis. On exam vital signs are stable. Cardio S1, S2 are muffled. Respiratory system shows diminished breath sounds at the bases with no wheezing or rhonchi noted. Abdomen is soft and nontender. Nervous system shows diffuse weakness. Please refer to medication reconciliation sheet for a list of medications. Patient Condition at Discharge: Stable Plan - Discharge Summary Discharge Rx Participant: No New Discharge Prescriptions: New Apixaban [Eliquis] 2.5 mg PO BID #60 tablet Amiodarone [Cordarone] 200 mg PO BID #60 tab Ipratropium-Albuterol Nebulize [Duoneb 0.5 mg-3 mg/3 ml Soln] 3 ml INHALATION RT-QID 30 Days #120 ml Ipratropium-Albuterol Nebulize [Duoneb 0.5 mg-3 mg/3 ml Soln] 3 ml INHALATION RT-QID PRN ml PRN Reason: Shortness Of Breath Or Wheezing Furosemide [Lasix] 20 mg PO DAILY 30 Days #30 tab Metoprolol Tartrate [Lopressor] 50 mg PO BID 30 Days #60 tab Multivitamins, Thera [Multivitamin (formulary)] 1 each PO DAILY@1200 30 Days #30 tab Acetaminophen Tab [Tylenol] 500 mg PO Q6HR PRN tab PRN Reason: Fever And/ Or Pain Cefepime [Maxipime] 2 gm IVPB Q12H vial Continue Budesonide-Formot 160-4.5 Mcg [Symbicort 160-4.5 Mcg Inhaler] 2 puff INHALATION RT-BID Albuterol Nebulized [Ventolin Nebulized] 2.5 mg INHALATION RT-BID Discontinued Cefepime [Maxipime] 2 gm IVPB DAILY Discharge Medication List Budesonide-Formot 160-4.5 Mcg [Symbicort 160-4.5 Mcg Inhaler] 2 puff INHALATION RT-BID 03/01/18 [History] Albuterol Nebulized [Ventolin Nebulized] 2.5 mg INHALATION RT-BID 05/15/20 [History] Apixaban [Eliquis] 2.5 mg PO BID #60 tablet 06/02/20 [Rx] Acetaminophen Tab [Tylenol] 500 mg PO Q6HR PRN tab 06/05/20 [Rx] Amiodarone [Cordarone] 200 mg PO BID #60 tab 06/05/20 [Rx] Cefepime [Maxipime] 2 gm IVPB Q12H vial 06/05/20 [Rx] Furosemide [Lasix] 20 mg PO DAILY 30 Days #30 tab 06/05/20 [Rx] Ipratropium-Albuterol Nebulize [Duoneb 0.5 mg-3 mg/3 ml Soln] 3 ml INHALATION RT-QID 30 Days #120 ml 06/05/20 [Rx] Ipratropium-Albuterol Nebulize [Duoneb 0.5 mg-3 mg/3 ml Soln] 3 ml INHALATION RT-QID PRN ml 06/05/20 [Rx] Metoprolol Tartrate [Lopressor] 50 mg PO BID 30 Days #60 tab 06/05/20 [Rx] Multivitamins, Thera [Multivitamin (formulary)] 1 each PO DAILY@1200 30 Days #30 tab 06/05/20 [Rx] Follow up Appointment(s)/Referral(s): Justo Hickman MD [STAFF PHYSICIAN] - 2 Weeks (office will call you with an appointment.) Georgiana Rehman DO [Primary Care Provider] - 06/10/20 12:00 pm Juan Zelaya DO [Doctor of Osteopathic Medicine] - 07/03/20 8:45 am [facility], [NON-STAFF] - Russ Casey MD [STAFF PHYSICIAN] - As Needed (follow up in wound care with normal appts. ) Patient Instructions/Handouts: A-fib (Atrial Fibrillation) (DC), Osteomyelitis (DC) Activity/Diet/Wound Care/Special Instructions: Activity Limited until follow-up Continue IV antibiotic per infectious disease Continue current diet Discharge Disposition: HOME WITH HOME HEALTH SERVICES
--- NOTE | 2020-06-05 17:44 | CONS ---
CONSULTATION DATE OF SERVICE: 06/05/2020 REASON FOR CONSULTATION: Left middle finger osteomyelitis, pseudomonas. 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 The patient did get a PICC line and she was advised a 6-week course of IV cefepime 2 grams q.12 hours, which apparently the patient was receiving at home with local wound care with Aquacel Silver dressing. The patient presented back to [facility] ER on June 01, 2020, with concern about palpitations and dyspnea. The patient subsequently has been admitted to the hospital and was being managed by pulmonary and cardiology services. The patient was considered ready for discharge today; however, the primary team realized that she needs to continue with her IV antibiotic therapy, for which I was asked to see the patient for continuation of her antibiotic therapy. The patient has been afebrile during this hospital stay. The patient did mention that her left middle finger is doing better. Wound is almost healed. Denies any significant pain, swelling or redness. No chest pain. No abdominal pain or diarrhea. No problem with the PICC line. REVIEW OF SYSTEMS: Positive points have been mentioned in the HPI. Rest of the systems are negative. PAST MEDICAL HISTORY: COPD, pneumonia, left middle finger osteomyelitis, colon polyp. PAST SURGICAL HISTORY: Bowel resection, cholecystectomy, left middle finger I and D. SOCIAL HISTORY: Remote history of smoking. No drinking or drug use. FAMILY HISTORY: Father with history of congestive heart failure. ALLERGIES: SULFA. MEDICATIONS: The patient is currently on Tylenol, [place], DuoNeb, Xanax, amiodarone, Eliquis, cefepime 2 grams q.12 hours, Lasix, Lopressor, Theragran, Nitrostat. PHYSICAL EXAMINATION: Blood pressure 124/71 with a pulse of 93, temperature 98. She is 95% on 2 L nasal cannula. General description is an elderly female lying in bed in no distress. No tachypnea or accessory muscle of respiration use. HEENT: Examination shows no pallor or scleral icterus. Oral mucosa membrane is dry. NECK: Trachea is central. No thyromegaly. LUNGS: Unlabored breathing. Clear to auscultation anteriorly. HEART: S1, S2. Regular rate and rhythm. ABDOMEN: Soft. No tenderness. LEFT INDEX FINGER: Swelling and redness improved. Wound is currently healed. No drainage. Neurologically the patient is awake, alert, oriented x3. Mood and affect normal. LABS: Hemoglobin 11.9, white count 11.8. BUN of 36, creatinine 1.27. Admission creatinine was 0.82. 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 The patient did have normal creatinine on admission. Slight worsening could be related to over-diuresis. Expect it to get back to normal. PLAN: 1. Cefepime 2 grams q.12 hours until June 30, 2020, to finish her 6-week course of therapy. 2. Weekly CBC and BMP, sedimentation rate and CRP. 3. Follow up in the office in 2 weeks. 4. Will follow clinical condition and further adjust medication if needed. Plan of care was discussed with the case investigator as well the patient, infusion for setup of outpatient IV antibiotic therapy. MMODL / IJN: [id number] /
== END 2020-06-05 15:15 | disposition home health service (06) | DRG 280 ==
LOC: EC 12:29 → 3SCARD 14:54
PROVIDERS: ADMIT Hospitalist; ATTEND Hospitalist
DX: I48.0 Paroxysmal atrial fibrillation (principal); I50.31 Acute diastolic (congestive) heart failure; I21.A1 Myocardial infarction type 2; J96.01 Acute respiratory failure with hypoxia; J18.9 Pneumonia, unspecified organism; E44.1 Mild protein-calorie malnutrition; M86.9 Osteomyelitis, unspecified; E87.1 Hypo-osmolality and hyponatremia; I31.3 Pericardial effusion (noninflammatory); J44.1 Chronic obstructive pulmonary disease with (acute) exacerbation; J44.0 Chronic obstructive pulmonary disease with (acute) lower respiratory infection; Q21.1 Atrial septal defect; Z68.1 Body mass index [BMI] 19.9 or less, adult; I27.20 Pulmonary hypertension, unspecified; I11.0 Hypertensive heart disease with heart failure; Z20.822 Contact with and (suspected) exposure to COVID-19; I08.1 Rheumatic disorders of both mitral and tricuspid valves; L08.9 Local infection of the skin and subcutaneous tissue, unspecified; R31.9 Hematuria, unspecified; B96.4 Proteus (mirabilis) (morganii) as the cause of diseases classified elsewhere; B96.89 Other specified bacterial agents as the cause of diseases classified elsewhere; N28.9 Disorder of kidney and ureter, unspecified; H54.7 Unspecified visual loss; H91.90 Unspecified hearing loss, unspecified ear; F17.211 Nicotine dependence, cigarettes, in remission; Z71.6 Tobacco abuse counseling; Z79.51 Long term (current) use of inhaled steroids; Z79.2 Long term (current) use of antibiotics; Z79.899 Other long term (current) drug therapy; Z87.442 Personal history of urinary calculi; Z90.49 Acquired absence of other specified parts of digestive tract; Z87.19 Personal history of other diseases of the digestive system; Z87.01 Personal history of pneumonia (recurrent); Z86.010 Personal history of colon polyps; Z98.42 Cataract extraction status, left eye; Z98.41 Cataract extraction status, right eye; Z96.1 Presence of intraocular lens; Z98.890 Other specified postprocedural states; Z88.2 Allergy status to sulfonamides; Z82.49 Family history of ischemic heart disease and other diseases of the circulatory system
CPT/HCPCS: 36415; 51798; 71045; 71046; 74018; 76700; 80048; 80053; 80061; 81001; 83735; 83880; 84439; 84443; 84481; 84484; 85025; 85610; 85730; 87635; 93005; 93306; 94640; 94760; 96365; 96366; 96368; 96376; 99291